=== PATIENT | female | born 1980 | race Caucasian/White ===

== ENCOUNTER 2018-08-21 16:55 | Emergency (ER) | payer MEDICAID, SELFPAY ==
[2018-08-21 17:00] VITALS: BP 156/95; PULSE 72; RESP 16; TEMP 36.7; O2SAT 94
--- NOTE | 2018-08-21 17:04 | W.ED.GENAD ---
Discharge Plan Disposition Patient Disposition: HOME Condition: Stable Discharge Details Chief Complaint: DentalOral Clinical Impression: Pain, dental Primary Care Provider: Emma Chatterjee ED Provider: Yazan Hidalgo Home Meds and New Rx's Prescriptions: New amoxicillin 500 mg tablet 500 mg PO BID Qty: 20 RF: 0 Continued epinephrine [EpiPen 2-Rey] 0.3 MG/0.3 ML auto-injector 0.3 mg IM ONCE RF: 0 Women's Daily Multivitamin 1 EACH tablet 1 ea PO DAILY RF: 0 acetaminophen [Tylenol] 325 MG tablet 650 mg PO Q4H PRN PRNRF: 0 ibuprofen 600 MG tablet 600 mg PO Q6H PRN PRNRF: 0 lorazepam 1 mg Tablet 1 tab PO PRN PRNRF: 0 lamotrigine [Lamictal] 100 mg Tablet 125 mg PO DAILY RF: 0 Discharge Instructions Instructions: Toothache (ED) Additional Instructions: you are being treated for a dental infection. you should follow up with your dentist within 2 weeks for pain take 1000mg tylenol and 600mg ibuprofen every 6 hours for pain as needed if you have difficulty breathing or difficulty swallowing liquids return to the emergency department Medical Decision Making 38 yo female comes in with severeal days of left upper dental pain. She denies fevers or difficulty swallowing. HAs severe dental decay of left upper posterior molars, midline uvula, no submandibular swelling, no restricted neck movements. 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 Will tx as dental infection and return precautions given Differential Diagnosis caries, infection HPI General Mode of arrival: ambulatory. Date/Time Provider Initiated Documentation: 08/21/18 16:55. Limitations to Documentation: no limitations. Information obtained by: patient. History of Present Illness 38 year old F presents to the emergency department with the chief complaint of left upper tooth pain , described as moderate, with intensity rated at 8. Quality is described as stabbing and aching, and is localized to the mouth. Patient started experiencing this day(s) (2) and it has been constant. No relieving factors improve symptom(s), No exacerbating factors reported . Patient notes no other symptoms.. Patient did receive the following treatments prior to arrival, NSAID Related Data Home Medications Medication Instructions Recorded Confirmed Women's Daily Multivitamin 1 ea PO DAILY tab-cap 03/15/16 08/21/18 epinephrine [EpiPen 2-Rey] 0.3 mg IM ONCE kit 03/15/16 08/21/18 acetaminophen [Tylenol] 650 mg PO Q4H PRN PRN tab 03/17/16 08/21/18 ibuprofen 600 mg PO Q6H PRN PRN tab 03/17/16 08/21/18 amoxicillin 500 mg PO BID #20 tab 08/21/18 lamotrigine [Lamictal] 125 mg PO DAILY 08/21/18 08/21/18 lorazepam 1 tab PO PRN PRN 08/21/18 08/21/18 Previous Rx's Medication Instructions Recorded acetaminophen [Tylenol] 650 mg PO Q4H PRN PRN tab 03/17/16 ibuprofen 600 mg PO Q6H PRN PRN tab 03/17/16 amoxicillin 500 mg PO BID #20 tab 08/21/18 Allergies Allergy/AdvReac Type Severity Reaction Status Date / Time latex Allergy Unknown BREAKS OUT Unverified 08/21/18 17:04 IN WATER BLISTERS venom-honey bee Allergy Unknown swelling Unverified 08/21/18 17:04 [bee venom (honey bee)] codeine AdvReac Unknown COULD Unverified 08/21/18 17:04 NOT SLEEP FOR 3 DAYS General Stated Complaint: DentalOral ADWOA: 4 Review of Systems Review of Systems All systems reviewed & are unremarkable except as noted in HPI and below Constitutional Denies chills, Denies fever(s) and Denies weakness ENT Denies change in voice Cardiovascular Denies chest pain and Denies dyspnea Respiratory Denies dyspnea Gastrointestinal Denies abdominal pain, Denies nausea and Denies vomiting Musculoskeletal Denies joint swelling Neurologic Denies weakness Psychiatric Denies depression [facility] Medical History Pelvic pain in female Family History Mother Alcohol abuse Sister Asthma Other Hypothyroidism Social History Smoking/Tobacco Use Status: Current every day Exam Const General: no acute distress Orientation: alert HENDE Head: normal to inspection Ears: external ears normal General nose exam: external nose normal Mouth: moist mucous membranes Eyes General: appearance normal, both eyes and all related structures Neck Neck: normal visual inspection Resp Effort & Inspection: normal respiratory effort and able to speak in complete sentences Cardio Rate: regular rate Skin General skin exam: no rashes or lesions noted Neuro General: alert and oriented x3 Extrem General: normal to inspection Psych Mental Status: mental status grossly normal Course Vital Signs Temperature 36.7 C 08/21/18 17:00 Pulse 72 08/21/18 17:00 Respiratory Rate 16 08/21/18 17:00 Blood Pressure 156/95 H 08/21/18 17:00 Pulse Oximetry 94 L 08/21/18 17:00 Temperature 36.7 C 08/21/18 17:00 Temperature Source Skin 08/21/18 17:00 Pulse 72 08/21/18 17:00 Respiratory Rate 16 08/21/18 17:00 Respiratory Effort Non-Labored 08/21/18 17:03 Blood Pressure 156/95 H 08/21/18 17:00 Pulse Oximetry 94 L 08/21/18 17:00 Pain Level 10 08/21/18 17:00
--- NOTE | 2018-08-21 17:13 | ED.GENADUL_ITS ---
Discharge Plan Disposition Patient Disposition: HOME Condition: Stable Discharge Details Chief Complaint: DentalOral Clinical Impression: Pain, dental Primary Care Provider: Emma Chatterjee ED Provider: Yazan Hidalgo Home Meds and New Rx's Prescriptions: New amoxicillin 500 mg tablet 500 mg PO BID Qty: 20 RF: 0 Continued epinephrine [EpiPen 2-Rey] 0.3 MG/0.3 ML auto-injector 0.3 mg IM ONCE RF: 0 Women's Daily Multivitamin 1 EACH tablet 1 ea PO DAILY RF: 0 acetaminophen [Tylenol] 325 MG tablet 650 mg PO Q4H PRN PRNRF: 0 ibuprofen 600 MG tablet 600 mg PO Q6H PRN PRNRF: 0 lorazepam 1 mg Tablet 1 tab PO PRN PRNRF: 0 lamotrigine [Lamictal] 100 mg Tablet 125 mg PO DAILY RF: 0 Discharge Instructions Instructions: Toothache (ED) Additional Instructions: you are being treated for a dental infection. you should follow up with your dentist within 2 weeks for pain take 1000mg tylenol and 600mg ibuprofen every 6 hours for pain as needed if you have difficulty breathing or difficulty swallowing liquids return to the emergency department Medical Decision Making 38 yo female comes in with severeal days of left upper dental pain. She denies fevers or difficulty swallowing. HAs severe dental decay of left upper posterior molars, midline uvula, no submandibular swelling, no restricted neck movements. 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 Will tx as dental infection and return precautions given Differential Diagnosis caries, infection HPI General Mode of arrival: ambulatory . Date/Time Provider Initiated Documentation: 08/21/18 16:55 . Limitations to Documentation: no limitations . Information obtained by: patient . History of Present Illness 38 year old F presents to the emergency department with the chief complaint of left upper tooth pain , described as moderate, with intensity rated at 8. Quality is described as stabbing and aching, and is localized to the mouth. Patient started experiencing this day(s) (2) and it has been constant. No relieving factors improve symptom(s), No exacerbating factors reported . Patient notes no other symptoms.. Patient did receive the following treatments prior to arrival, NSAID Related Data Home Medications Medication Instructions Recorded Confirmed Women's Daily Multivitamin 1 ea PO DAILY tab-cap 03/15/16 08/21/18 epinephrine [EpiPen 2-Rey] 0.3 mg IM ONCE kit 03/15/16 08/21/18 acetaminophen [Tylenol] 650 mg PO Q4H PRN PRN tab 03/17/16 08/21/18 ibuprofen 600 mg PO Q6H PRN PRN tab 03/17/16 08/21/18 amoxicillin 500 mg PO BID #20 tab 08/21/18 lamotrigine [Lamictal] 125 mg PO DAILY 08/21/18 08/21/18 lorazepam 1 tab PO PRN PRN 08/21/18 08/21/18 Previous Rx's Medication Instructions Recorded acetaminophen [Tylenol] 650 mg PO Q4H PRN PRN tab 03/17/16 ibuprofen 600 mg PO Q6H PRN PRN tab 03/17/16 amoxicillin 500 mg PO BID #20 tab 08/21/18 Allergies Allergy/AdvReac Type Severity Reaction Status Date / Time latex Allergy Unknown BREAKS OUT Unverified 08/21/18 17:04 IN WATER BLISTERS venom-honey bee Allergy Unknown swelling Unverified 08/21/18 17:04 [bee venom (honey bee)] codeine AdvReac Unknown COULD Unverified 08/21/18 17:04 NOT SLEEP FOR 3 DAYS General Stated Complaint: DentalOral ADWOA: 4 Review of Systems Review of Systems All systems reviewed & are unremarkable except as noted in HPI and below Constitutional Denies chills, Denies fever(s) and Denies weakness ENT Denies change in voice Cardiovascular Denies chest pain and Denies dyspnea Respiratory Denies dyspnea Gastrointestinal Denies abdominal pain, Denies nausea and Denies vomiting Musculoskeletal Denies joint swelling Neurologic Denies weakness Psychiatric Denies depression [facility] Medical History Pelvic pain in female Family History Mother Alcohol abuse Sister Asthma Other Hypothyroidism Social History Smoking/Tobacco Use Status: Current every day Exam Const General: no acute distress Orientation: alert HENWV Head: normal to inspection Ears: external ears normal General nose exam: external nose normal Mouth: moist mucous membranes Eyes General: appearance normal, both eyes and all related structures Neck Neck: normal visual inspection Resp Effort & Inspection: normal respiratory effort and able to speak in complete sentences Cardio Rate: regular rate Skin General skin exam: no rashes or lesions noted Neuro General: alert and oriented x3 Extrem General: normal to inspection Psych Mental Status: mental status grossly normal Course Vital Signs Temperature 36.7 C 08/21/18 17:00 Pulse 72 08/21/18 17:00 Respiratory Rate 16 08/21/18 17:00 Blood Pressure 156/95 H 08/21/18 17:00 Pulse Oximetry 94 L 08/21/18 17:00 Temperature 36.7 C 08/21/18 17:00 Temperature Source Skin 08/21/18 17:00 Pulse 72 08/21/18 17:00 Respiratory Rate 16 08/21/18 17:00 Respiratory Effort Non-Labored 08/21/18 17:03 Blood Pressure 156/95 H 08/21/18 17:00 Pulse Oximetry 94 L 08/21/18 17:00 Pain Level 10 08/21/18 17:00
[2018-08-21] MEDS: oxyCODONE 5 MG TAB PO (17:16)
[2018-08-21] MEDS: Amoxicillin 500 MG CAP PO (17:17)
== END 2018-08-21 17:22 | disposition home or self-care (01) ==
LOC: ER 17:19
PROVIDERS: Emergency Provider Emergency Medicine
DX: K08.89 Other specified disorders of teeth and supporting structures (principal); K02.9 Dental caries, unspecified; F17.210 Nicotine dependence, cigarettes, uncomplicated
CPT/HCPCS: 99283

== ENCOUNTER 2018-08-31 22:48 | Emergency (ER) | payer MEDICAID, SELFPAY ==
[2018-08-31 22:50] VITALS: BP 153/84; PULSE 90; RESP 16
--- NOTE | 2018-08-31 22:57 | NUR.NOTE ---
patient has white tongue patches Nursing Note:
--- NOTE | 2018-08-31 22:57 | W.ED.GENAD ---
Discharge Plan Disposition Patient Disposition: HOME Condition: Stable Discharge Details Chief Complaint: GenMedical Clinical Impression: Oral thrush Primary Care Provider: None,None ED Provider: Yazan Hidalgo Home Meds and New Rx's Prescriptions: New nystatin 100,000 unit/mL suspension 400,000 unit BC QID 10 Days Qty: 160 RF: 0 Continued epinephrine [EpiPen 2-Rey] 0.3 MG/0.3 ML auto-injector 0.3 mg IM ONCE RF: 0 Women's Daily Multivitamin 1 EACH tablet 1 ea PO DAILY RF: 0 acetaminophen [Tylenol] 325 MG tablet 650 mg PO Q4H PRN PRNRF: 0 ibuprofen 600 MG tablet 600 mg PO Q6H PRN PRNRF: 0 lorazepam 1 mg Tablet 1 tab PO PRN PRNRF: 0 lamotrigine [Lamictal] 100 mg Tablet 125 mg PO DAILY RF: 0 amoxicillin 500 mg tablet 500 mg PO BID Qty: 20 RF: 0 Discharge Instructions Instructions: Oral Candidiasis (ED) Medical Decision Making 38 yo female comes in with white substance on tongue and cotton mouth starting tonight. Hsa one more day of abx for a dental infection and has no pain now, speaking in full sentences with no stridor or drooling or submandibular swelling. Has white curd like plaques and leaves erythematous base when removed. Suspect thrush due to the abx, no other systemic findings to suggest hiv so do not feel workup for this indicated. Will prescribe nystatin and d/c home Differential Diagnosis thrush, measels, dermatitis HPI General Mode of arrival: ambulatory. Date/Time Provider Initiated Documentation: 08/31/18 22:49. Limitations to Documentation: no limitations. Information obtained by: patient. History of Present Illness 38 year old F presents to the emergency department with the chief complaint of tongue white, described as mild, and is localized to the mouth. Patient reports no radiation. Patient started experiencing this hour(s) (3) and it has been constant. No relieving factors improve symptom(s), No exacerbating factors reported . Patient notes no other symptoms.. Patient did receive the following treatments prior to arrival, none Related Data Home Medications Medication Instructions Recorded Confirmed Women's Daily Multivitamin 1 ea PO DAILY tab-cap 03/15/16 08/31/18 epinephrine [EpiPen 2-Rey] 0.3 mg IM ONCE kit 03/15/16 08/31/18 acetaminophen [Tylenol] 650 mg PO Q4H PRN PRN tab 03/17/16 08/31/18 ibuprofen 600 mg PO Q6H PRN PRN tab 03/17/16 08/31/18 amoxicillin 500 mg PO BID #20 tab 08/21/18 08/31/18 lamotrigine [Lamictal] 125 mg PO DAILY 08/21/18 08/31/18 lorazepam 1 tab PO PRN PRN 08/21/18 08/31/18 nystatin 400,000 unit BC QID 10 Days #160 ml 08/31/18 Previous Rx's Medication Instructions Recorded acetaminophen [Tylenol] 650 mg PO Q4H PRN PRN tab 03/17/16 ibuprofen 600 mg PO Q6H PRN PRN tab 03/17/16 amoxicillin 500 mg PO BID #20 tab 08/21/18 nystatin 400,000 unit BC QID 10 Days #160 ml 08/31/18 Allergies Allergy/AdvReac Type Severity Reaction Status Date / Time latex Allergy Unknown BREAKS OUT Unverified 08/31/18 22:56 IN WATER BLISTERS venom-honey bee Allergy Unknown swelling Unverified 08/31/18 22:56 [bee venom (honey bee)] codeine AdvReac Unknown COULD Unverified 08/31/18 22:56 NOT SLEEP FOR 3 DAYS General Stated Complaint: GenMedical ADWOA: 5 Review of Systems Review of Systems All systems reviewed & are unremarkable except as noted in HPI and below Constitutional Denies chills, Denies fever(s) and Denies weakness ENT Denies change in voice Cardiovascular Denies chest pain and Denies dyspnea Respiratory Denies dyspnea Gastrointestinal Denies abdominal pain, Denies nausea and Denies vomiting Neurologic Denies weakness Psychiatric Denies depression [facility] Social History Smoking/Tobacco Use Status: Current every day Exam Const General: no acute distress Orientation: alert HENMT Head: normal to inspection Ears: external ears normal General nose exam: external nose normal Mouth: moist mucous membranes Eyes General: appearance normal, both eyes and all related structures Neck Neck: normal visual inspection Resp Effort & Inspection: normal respiratory effort and able to speak in complete sentences Cardio Rate: regular rate Skin General skin exam: no rashes or lesions noted Neuro General: alert and oriented x3 Extrem General: normal to inspection Psych Mental Status: mental status grossly normal Course Vital Signs Pulse 90 08/31/18 22:50 Respiratory Rate 16 08/31/18 22:50 Blood Pressure 153/84 H 08/31/18 22:50 Temperature Source Tympanic 08/31/18 22:50 Pulse 90 08/31/18 22:50 Respiratory Rate 16 08/31/18 22:50 Respiratory Effort 08/31/18 22:55 Respiratory Depth Normal 08/31/18 22:55 Respiratory Pattern Normal 08/31/18 22:55 Blood Pressure 153/84 H 08/31/18 22:50
--- NOTE | 2018-08-31 23:01 | ED.GENADUL_ITS ---
Discharge Plan Disposition Patient Disposition: HOME Condition: Stable Discharge Details Chief Complaint: GenMedical Clinical Impression: Oral thrush Primary Care Provider: None,None ED Provider: Yazan Hidalgo Home Meds and New Rx's Prescriptions: New nystatin 100,000 unit/mL suspension 400,000 unit BC QID 10 Days Qty: 160 RF: 0 Continued epinephrine [EpiPen 2-Rey] 0.3 MG/0.3 ML auto-injector 0.3 mg IM ONCE RF: 0 Women's Daily Multivitamin 1 EACH tablet 1 ea PO DAILY RF: 0 acetaminophen [Tylenol] 325 MG tablet 650 mg PO Q4H PRN PRNRF: 0 ibuprofen 600 MG tablet 600 mg PO Q6H PRN PRNRF: 0 lorazepam 1 mg Tablet 1 tab PO PRN PRNRF: 0 lamotrigine [Lamictal] 100 mg Tablet 125 mg PO DAILY RF: 0 amoxicillin 500 mg tablet 500 mg PO BID Qty: 20 RF: 0 Discharge Instructions Instructions: Oral Candidiasis (ED) Medical Decision Making 38 yo female comes in with white substance on tongue and cotton mouth starting tonight. Hsa one more day of abx for a dental infection and has no pain now, speaking in full sentences with no stridor or drooling or submandibular swelling. Has white curd like plaques and leaves erythematous base when removed. Suspect thrush due to the abx, no other systemic findings to suggest hiv so do not feel workup for this indicated. Will prescribe nystatin and d/c home Differential Diagnosis thrush, measels, dermatitis HPI General Mode of arrival: ambulatory . Date/Time Provider Initiated Documentation: 08/31/18 22:49 . Limitations to Documentation: no limitations . Information obtained by: patient . History of Present Illness 38 year old F presents to the emergency department with the chief complaint of tongue white, described as mild, and is localized to the mouth. Patient reports no radiation. Patient started experiencing this hour(s) (3) and it has been constant. No relieving factors improve symptom(s), No exacerbating factors reported . Patient notes no other symptoms.. Patient did receive the following treatments prior to arrival, none Related Data Home Medications Medication Instructions Recorded Confirmed Women's Daily Multivitamin 1 ea PO DAILY tab-cap 03/15/16 08/31/18 epinephrine [EpiPen 2-Rey] 0.3 mg IM ONCE kit 03/15/16 08/31/18 acetaminophen [Tylenol] 650 mg PO Q4H PRN PRN tab 03/17/16 08/31/18 ibuprofen 600 mg PO Q6H PRN PRN tab 03/17/16 08/31/18 amoxicillin 500 mg PO BID #20 tab 08/21/18 08/31/18 lamotrigine [Lamictal] 125 mg PO DAILY 08/21/18 08/31/18 lorazepam 1 tab PO PRN PRN 08/21/18 08/31/18 nystatin 400,000 unit BC QID 10 Days #160 ml 08/31/18 Previous Rx's Medication Instructions Recorded acetaminophen [Tylenol] 650 mg PO Q4H PRN PRN tab 03/17/16 ibuprofen 600 mg PO Q6H PRN PRN tab 03/17/16 amoxicillin 500 mg PO BID #20 tab 08/21/18 nystatin 400,000 unit BC QID 10 Days #160 ml 08/31/18 Allergies Allergy/AdvReac Type Severity Reaction Status Date / Time latex Allergy Unknown BREAKS OUT Unverified 08/31/18 22:56 IN WATER BLISTERS venom-honey bee Allergy Unknown swelling Unverified 08/31/18 22:56 [bee venom (honey bee)] codeine AdvReac Unknown COULD Unverified 08/31/18 22:56 NOT SLEEP FOR 3 DAYS General Stated Complaint: GenMedical ADWOA: 5 Review of Systems Review of Systems All systems reviewed & are unremarkable except as noted in HPI and below Constitutional Denies chills, Denies fever(s) and Denies weakness ENT Denies change in voice Cardiovascular Denies chest pain and Denies dyspnea Respiratory Denies dyspnea Gastrointestinal Denies abdominal pain, Denies nausea and Denies vomiting Neurologic Denies weakness Psychiatric Denies depression [facility] Social History Smoking/Tobacco Use Status: Current every day Exam Const General: no acute distress Orientation: alert HENMT Head: normal to inspection Ears: external ears normal General nose exam: external nose normal Mouth: moist mucous membranes Eyes General: appearance normal, both eyes and all related structures Neck Neck: normal visual inspection Resp Effort & Inspection: normal respiratory effort and able to speak in complete sentences Cardio Rate: regular rate Skin General skin exam: no rashes or lesions noted Neuro General: alert and oriented x3 Extrem General: normal to inspection Psych Mental Status: mental status grossly normal Course Vital Signs Pulse 90 08/31/18 22:50 Respiratory Rate 16 08/31/18 22:50 Blood Pressure 153/84 H 08/31/18 22:50 Temperature Source Tympanic 08/31/18 22:50 Pulse 90 08/31/18 22:50 Respiratory Rate 16 08/31/18 22:50 Respiratory Effort 08/31/18 22:55 Respiratory Depth Normal 08/31/18 22:55 Respiratory Pattern Normal 08/31/18 22:55 Blood Pressure 153/84 H 08/31/18 22:50
== END 2018-08-31 23:05 | disposition home or self-care (01) ==
PROVIDERS: Emergency Provider Emergency Medicine
DX: B37.0 Candidal stomatitis (principal)
CPT/HCPCS: 99283

== ENCOUNTER 2018-10-11 17:44 | Emergency (ER) | payer MEDICAID, SELFPAY ==
[2018-10-11 18:00] VITALS: BP 139/56; PULSE 73; RESP 16; TEMP 37; O2SAT 95
--- NOTE | 2018-10-11 18:07 | W.ED.GENAD ---
Discharge Plan Disposition Patient Disposition: HOME Condition: Stable Discharge Details Chief Complaint: RashLesion Clinical Impression: Pharyngitis, Enlarged lymph node Primary Care Provider: None,None ED Provider: Yazan Hidalgo Home Meds and New Rx's Prescriptions: New clindamycin HCl 150 mg capsule 450 mg PO TID 7 Days Qty: 63 RF: 0 Continued epinephrine [EpiPen 2-Rey] 0.3 MG/0.3 ML auto-injector 0.3 mg IM ONCE RF: 0 Women's Daily Multivitamin 1 EACH tablet 1 ea PO DAILY RF: 0 acetaminophen [Tylenol] 325 MG tablet 650 mg PO Q4H PRN PRNRF: 0 ibuprofen 600 MG tablet 600 mg PO Q6H PRN PRNRF: 0 lorazepam 1 mg Tablet 1 tab PO PRN PRNRF: 0 lamotrigine [Lamictal] 100 mg Tablet 150 mg PO DAILY RF: 0 Discharge Instructions Instructions: Pharyngitis (ED) Additional Instructions: The nodule/lump you feel is likely an enlarged lymph node follow up as scheduled with your primary care provider especially if the lump or symptoms are not improving if you have difficulty breathing or inability to swallow liquids return to the emergency department Medical Decision Making 38 yo female comes in with sore throat and tender lump on left anterior neck since yesterday. no fevers, chills, dyspnea, on exam is swallowing well without stridor or droling. She does have posterior pharynx erythema with midline uvula, no pain over hyoid or restricted neck movements on exam, no findings to suggest rpa, guest experience captain, epiglotitis. Given no other systemic symptoms doubt viral pharyngitis and will start abx to cover for bacterial pharyngitis. She has a 1x1cm mobile mass on the left anterior neck that seems most consistnent with a lymph node, no redness or fluctuance to suggest abscess. Advised f/u with pcp and return precautions given Differential Diagnosis pharyngitis, lymphadenopathy, rpa, guest experience captain HPI General Mode of arrival: ambulatory. Date/Time Provider Initiated Documentation: 10/11/18 17:57. Limitations to Documentation: no limitations. Information obtained by: patient. History of Present Illness 38 year old F presents to the emergency department with the chief complaint of sore throat, described as moderate, with intensity rated at 4. Quality is described as aching, Patient started experiencing this day(s) (1) and it has been constant. No relieving factors improve symptom(s), No exacerbating factors reported . Patient did receive the following treatments prior to arrival, none Related Data Home Medications Medication Instructions Recorded Confirmed Women's Daily Multivitamin 1 ea PO DAILY tab-cap 03/15/16 10/11/18 epinephrine [EpiPen 2-Rey] 0.3 mg IM ONCE kit 03/15/16 10/11/18 acetaminophen [Tylenol] 650 mg PO Q4H PRN PRN tab 03/17/16 10/11/18 ibuprofen 600 mg PO Q6H PRN PRN tab 03/17/16 10/11/18 lamotrigine [Lamictal] 150 mg PO DAILY 08/21/18 10/11/18 lorazepam 1 tab PO PRN PRN 08/21/18 10/11/18 clindamycin HCl 450 mg PO TID 7 Days #63 cap 10/11/18 Previous Rx's Medication Instructions Recorded acetaminophen [Tylenol] 650 mg PO Q4H PRN PRN tab 03/17/16 ibuprofen 600 mg PO Q6H PRN PRN tab 03/17/16 clindamycin HCl 450 mg PO TID 7 Days #63 cap 10/11/18 Allergies Allergy/AdvReac Type Severity Reaction Status Date / Time latex Allergy Unknown BREAKS OUT Unverified 10/11/18 18:02 IN WATER BLISTERS venom-honey bee Allergy Unknown swelling Unverified 10/11/18 18:02 [bee venom (honey bee)] codeine AdvReac Unknown COULD Unverified 10/11/18 18:02 NOT SLEEP FOR 3 DAYS General Stated Complaint: RashLesion ADWOA: 4 Review of Systems Review of Systems All systems reviewed & are unremarkable except as noted in HPI and below Constitutional Denies chills, Denies fever(s) and Denies weakness ENT Denies change in voice Cardiovascular Denies chest pain and Denies dyspnea Respiratory Denies cough and Denies dyspnea Gastrointestinal Denies abdominal pain, Denies nausea and Denies vomiting Genitourinary Denies dysuria Musculoskeletal Denies joint swelling Integumentary/Breasts Denies rash Neurologic Denies weakness PFSH Social History Smoking and Tabacco status: Current every day Exam Const General: no acute distress Orientation: alert HENMT Head: normal to inspection Ears: external ears normal General nose exam: external nose normal Mouth: moist mucous membranes Eyes General: appearance normal, both eyes and all related structures Neck Neck: normal visual inspection Resp Effort & Inspection: normal respiratory effort and able to speak in complete sentences Cardio Rate: regular rate Skin General skin exam: no rashes or lesions noted Neuro General: alert and oriented x3 Extrem General: normal to inspection Psych Mental Status: mental status grossly normal Course Vital Signs Temperature 37.0 C 10/11/18 18:00 Pulse 73 10/11/18 18:00 Respiratory Rate 16 10/11/18 18:00 Blood Pressure 139/56 L 10/11/18 18:00 Pulse Oximetry 95 10/11/18 18:00 Temperature 37.0 C 10/11/18 18:00 Temperature Source Skin 10/11/18 18:00 Pulse 73 10/11/18 18:00 Respiratory Rate 16 10/11/18 18:00 Respiratory Effort Non-Labored 10/11/18 18:00 Blood Pressure 139/56 L 10/11/18 18:00 Blood Pressure Position Sitting 10/11/18 18:00 Pulse Oximetry 95 10/11/18 18:00 Oxygen Delivery Method Room Air 10/11/18 18:00 Oxygen Flow Rate 0 10/11/18 18:00 Pain Level 7 10/11/18 18:00
--- NOTE | 2018-10-11 18:10 | ED.GENADUL_ITS ---
Discharge Plan Disposition Patient Disposition: HOME Condition: Stable Discharge Details Chief Complaint: RashLesion Clinical Impression: Pharyngitis, Enlarged lymph node Primary Care Provider: None,None ED Provider: Yazan Hidalgo Home Meds and New Rx's Prescriptions: New clindamycin HCl 150 mg capsule 450 mg PO TID 7 Days Qty: 63 RF: 0 Continued epinephrine [EpiPen 2-Rey] 0.3 MG/0.3 ML auto-injector 0.3 mg IM ONCE RF: 0 Women's Daily Multivitamin 1 EACH tablet 1 ea PO DAILY RF: 0 acetaminophen [Tylenol] 325 MG tablet 650 mg PO Q4H PRN PRNRF: 0 ibuprofen 600 MG tablet 600 mg PO Q6H PRN PRNRF: 0 lorazepam 1 mg Tablet 1 tab PO PRN PRNRF: 0 lamotrigine [Lamictal] 100 mg Tablet 150 mg PO DAILY RF: 0 Discharge Instructions Instructions: Pharyngitis (ED) Additional Instructions: The nodule/lump you feel is likely an enlarged lymph node follow up as scheduled with your primary care provider especially if the lump or symptoms are not improving if you have difficulty breathing or inability to swallow liquids return to the emergency department Medical Decision Making 38 yo female comes in with sore throat and tender lump on left anterior neck since yesterday. no fevers, chills, dyspnea, on exam is swallowing well without stridor or droling. She does have posterior pharynx erythema with midline uvula, no pain over hyoid or restricted neck movements on exam, no findings to suggest rpa, captain waiter/waitress, epiglotitis. Given no other systemic symptoms doubt viral pharyngitis and will start abx to cover for bacterial pharyngitis. She has a 1x1cm mobile mass on the left anterior neck that seems most consistnent with a lymph node, no redness or fluctuance to suggest abscess. Advised f/u with pcp and return precautions given Differential Diagnosis pharyngitis, lymphadenopathy, rpa, captain waiter/waitress HPI General Mode of arrival: ambulatory . Date/Time Provider Initiated Documentation: 10/11/18 17:57 . Limitations to Documentation: no limitations . Information obtained by: patient . History of Present Illness 38 year old F presents to the emergency department with the chief complaint of sore throat, described as moderate, with intensity rated at 4. Quality is described as aching, Patient started experiencing this day(s) (1) and it has been constant. No relieving factors improve symptom(s), No exacerbating factors reported . Patient did receive the following treatments prior to arrival, none Related Data Home Medications Medication Instructions Recorded Confirmed Women's Daily Multivitamin 1 ea PO DAILY tab-cap 03/15/16 10/11/18 epinephrine [EpiPen 2-Rey] 0.3 mg IM ONCE kit 03/15/16 10/11/18 acetaminophen [Tylenol] 650 mg PO Q4H PRN PRN tab 03/17/16 10/11/18 ibuprofen 600 mg PO Q6H PRN PRN tab 03/17/16 10/11/18 lamotrigine [Lamictal] 150 mg PO DAILY 08/21/18 10/11/18 lorazepam 1 tab PO PRN PRN 08/21/18 10/11/18 clindamycin HCl 450 mg PO TID 7 Days #63 cap 10/11/18 Previous Rx's Medication Instructions Recorded acetaminophen [Tylenol] 650 mg PO Q4H PRN PRN tab 03/17/16 ibuprofen 600 mg PO Q6H PRN PRN tab 03/17/16 clindamycin HCl 450 mg PO TID 7 Days #63 cap 10/11/18 Allergies Allergy/AdvReac Type Severity Reaction Status Date / Time latex Allergy Unknown BREAKS OUT Unverified 10/11/18 18:02 IN WATER BLISTERS venom-honey bee Allergy Unknown swelling Unverified 10/11/18 18:02 [bee venom (honey bee)] codeine AdvReac Unknown COULD Unverified 10/11/18 18:02 NOT SLEEP FOR 3 DAYS General Stated Complaint: RashLesion ADWOA: 4 Review of Systems Review of Systems All systems reviewed & are unremarkable except as noted in HPI and below Constitutional Denies chills, Denies fever(s) and Denies weakness ENT Denies change in voice Cardiovascular Denies chest pain and Denies dyspnea Respiratory Denies cough and Denies dyspnea Gastrointestinal Denies abdominal pain, Denies nausea and Denies vomiting Genitourinary Denies dysuria Musculoskeletal Denies joint swelling Integumentary/Breasts Denies rash Neurologic Denies weakness PFSH Social History Smoking and Tabacco status: Current every day Exam Const General: no acute distress Orientation: alert HENMT Head: normal to inspection Ears: external ears normal General nose exam: external nose normal Mouth: moist mucous membranes Eyes General: appearance normal, both eyes and all related structures Neck Neck: normal visual inspection Resp Effort & Inspection: normal respiratory effort and able to speak in complete sentences Cardio Rate: regular rate Skin General skin exam: no rashes or lesions noted Neuro General: alert and oriented x3 Extrem General: normal to inspection Psych Mental Status: mental status grossly normal Course Vital Signs Temperature 37.0 C 10/11/18 18:00 Pulse 73 10/11/18 18:00 Respiratory Rate 16 10/11/18 18:00 Blood Pressure 139/56 L 10/11/18 18:00 Pulse Oximetry 95 10/11/18 18:00 Temperature 37.0 C 10/11/18 18:00 Temperature Source Skin 10/11/18 18:00 Pulse 73 10/11/18 18:00 Respiratory Rate 16 10/11/18 18:00 Respiratory Effort Non-Labored 10/11/18 18:00 Blood Pressure 139/56 L 10/11/18 18:00 Blood Pressure Position Sitting 10/11/18 18:00 Pulse Oximetry 95 10/11/18 18:00 Oxygen Delivery Method Room Air 10/11/18 18:00 Oxygen Flow Rate 0 10/11/18 18:00 Pain Level 7 10/11/18 18:00
== END 2018-10-11 18:15 | disposition home or self-care (01) ==
LOC: ER 18:28
PROVIDERS: Emergency Provider Emergency Medicine
DX: J02.9 Acute pharyngitis, unspecified (principal); R59.0 Localized enlarged lymph nodes
CPT/HCPCS: 99283

== ENCOUNTER 2024-02-08 20:09 | Emergency (ER) | payer MEDICAID, SELFPAY ==
[2024-02-08 20:17] VITALS: BP 148/88; PULSE 79; RESP 15; TEMP 37.1; O2SAT 98
[2024-02-08 20:19] VITALS: BP 148/88; PULSE 79; RESP 15; TEMP 37.1; O2SAT 98
--- NOTE | 2024-02-08 20:23 | ED.GENADUL_ITS ---
Discharge Plan Disposition Patient Disposition: Home Condition: Stable Discharge Details Clinical Impression: Dental infection Primary Care Provider: None,None ED Provider: Nathanael River Home Meds and New Rx's Prescriptions: New amoxicillin-pot clavulanate 875-125 mg tablet 1 tab PO BID 10 Days Qty: 20 0RF Continued epinephrine [EpiPen 2-Rey] 0.3 MG/0.3 ML auto-injector 0.3 mg IM ONCE Hold Instructions: Prescription Finished Patient Comments: I have never used 06/07/16 Women's Daily Multivitamin 1 EACH tablet 1 ea PO DAILY acetaminophen [Tylenol] 325 MG tablet 650 mg PO Q4H PRN PRN0RF ibuprofen 600 MG tablet 600 mg PO Q6H PRN PRN0RF lorazepam 1 mg Tablet 1 tab PO PRN PRN Hold Instructions: Pt Stopped/Never Started lamotrigine [Lamictal] 100 mg Tablet 150 mg PO DAILY Hold Instructions: Pt Stopped/Never Started Discharge Instructions Instructions: Dental Pain ED Additional Instructions: You were seen in the emergency department for your dental infection, there is no visible abscess. I think we can treat this with antibiotics only with good chances of relief. Please take the prescribed Augmentin as directed it was sent to [facility] in [place]. Use Orajel as you have been, please use therapeutic dosing of Tylenol (acetamenophen) & Advil (ibuprofen) in an alternating fashion as follows: Take 1000mg of Tylenol every 6 hours without missing doses- that is 4 times per day. [place] in between the Tylenol dosings, take 400-600mg of Advil also on a 6 hour schedule, that is also 4 times per day. The daily maximum dosing of Tylenol is 4000mg, and the daily maximum dosing of Advil is 2400mg. This is safe to do for weeks. Please note that some common cold medications & prescription pain medications may contain acetamenophen and you need to read OTC drug labels and factor that in to maximum daily dosings. Swish and spit with warm salt water 3 times per day, [employer] clove homeopathic remedy for dental pain. Please return to the emergency department for severe increase in facial swelling with redness, inability to open or close your jaw, muffled vocal changes, excessive drooling. Referrals: [facility] [Provider Group] Discharge Data Discharge Date/Time-TO BE ENTERED AT DEPARTURE: 02/08/24 20:46 HPI General Date/Time Provider Initiated Documentation: 02/08/24 20:23 . HPI Narrative: 43 year-old female presents to ED today by POV/ambulating with a chief complaint of L cheek swelling and dental infection with onset noticed for the past few days- but the swelling to L cheek increased this morning. Quality described as throbbing pain, upper L canine area, no radiation to muffled vocal changes, neck swelling, hernandez facial redness, trismus, dysphagia, inability to tolerate PO intake. Severity is described as severe. Palliating factors include Tylenol & ibuprofen and Orajel with mild relief. Provoking factors include nothing specific. Events leading up to the incident/Associated Symptoms: Patient has diffuse dental caries. Patient not anticoagulated. Related Data Home Medications Medication Instructions Recorded Confirmed epinephrine 0.3 mg/0.3 mL 0.3 mg IM ONCE 03/15/16 02/08/24 injection, auto-injector (EpiPen 2-Rey) [id number] 18 1 ea PO DAILY 03/15/16 02/08/24 mg-0.4 mg tablet (Women's Daily Multivitamin) acetaminophen 325 mg tablet 650 mg (2 x 325 mg) PO Q4H PRN PRN 03/17/16 02/08/24 (Tylenol) ibuprofen 600 mg tablet 600 mg PO Q6H PRN PRN 03/17/16 02/08/24 lamotrigine 100 mg tablet 150 mg PO DAILY 08/21/18 02/08/24 (Lamictal) lorazepam 1 mg tablet 1 tab PO PRN PRN 08/21/18 02/08/24 amoxicillin 875 mg-potassium 1 tab PO BID 10 days #20 tabs 02/08/24 clavulanate 125 mg tablet Previous Rx's Medication Instructions Recorded acetaminophen 325 mg tablet 650 mg (2 x 325 mg) PO Q4H PRN PRN 03/17/16 (Tylenol) ibuprofen 600 mg tablet 600 mg PO Q6H PRN PRN 03/17/16 amoxicillin 875 mg-potassium 1 tab PO BID 10 days #20 tabs 02/08/24 clavulanate 125 mg tablet Allergies Allergy/AdvReac Type Severity Reaction Status Date / Time latex Allergy Unknown BREAKS OUT Unverified 02/08/24 20:21 IN WATER BLISTERS venom-honey bee Allergy Unknown swelling Unverified 02/08/24 20:21 [bee venom (honey bee)] codeine AdvReac Unknown COULD Unverified 02/08/24 20:21 NOT SLEEP FOR 3 DAYS General Stated Complaint: DentalOral ADWOA: 4 Review of Systems All systems reviewed & are unremarkable except as noted in HPI and below Exam Narrative Exam Narrative: GENERAL APPEARANCE: Well-nourished, non-toxic, awake and alert, atraumatic, no acute distress. SKIN: Warm, pink, dry, intact, without rashes/lesions/ulcerations. HEAD: Normocephalic, atraumatic, normal hair distribution for gender/age. EYES: Pupils PERRLA, EOMs intact without nystagmus, normal conjunctiva, no exudates on lids/lashes. ENT: Nares patent, no circumoral cyanosis, diffuse dental decay and caries without visible gingival abscess, no fluctuance to the gumline above the upper left teeth, mild facial swelling without hernandez erythema, no trismus, no focal changes, no neck swelling, uvula midline. NECK: Supple, trachea midline, painless cervical ROM. LUNGS/CHEST: Non-labored respirations, normal A/P diameter, symmetrical expansion, no chest wall deformity HEART (CV/PV): No peripheral edema, no JVD. ABDOMEN: Soft, non-distended, no guarding. MSK: Normal ROM, no swelling/deformity to bilateral UEs or LEs, moving all extremities without weakness, no cyanosis, spine midline without tenderness, normal curvature. NEURO: Mental Status AAOx4 - alert to person, place, time, events No facial droop, no forehead involvement. Motor: No focal weakness - strength 5/5 in bilateral UEs and LEs, proximal and distal, symmetric. Sensory: sensation intact to light touch globally. Gait normal: patient ambulated without ataxia into ED room. PSYCH: euthymic, cooperative, pleasant, appropriate speech Course Vital Signs Vital signs: Vital Signs Temperature 37.1 C 02/08/24 20:17 Pulse 79 02/08/24 20:17 Respiratory Rate 15 02/08/24 20:17 Blood Pressure 148/88 H 02/08/24 20:17 Pulse Oximetry 98 02/08/24 20:17 Temperature 37.1 C 02/08/24 20:19 Pulse 79 02/08/24 20:19 Respiratory Rate 15 02/08/24 20:19 Respiratory Effort Normal 02/08/24 20:19 Blood Pressure 148/88 H 02/08/24 20:19 Blood Pressure Position Sitting 02/08/24 20:19 Pulse Oximetry 98 02/08/24 20:19 Oxygen Delivery Method Room Air 02/08/24 20:19 Oxygen Flow Rate 0 02/08/24 20:19 Medical Decision Making This dictation utilizes [id number] dictation software and may contain unedited grammatical errors. 43 year-old female presents to ED today by POV/ambulating with a chief complaint of L cheek swelling and dental infection with onset noticed for the past few days- but the swelling to L cheek increased this morning. Quality described as throbbing pain, upper L canine area, no radiation to muffled vocal changes, neck swelling, hernandez facial redness, trismus, dysphagia, inability to tolerate PO in take. Severity is described as severe. Palliating factors include Tylenol & ibuprofen and Orajel with mild relief. Provoking factors include nothing specific. Events leading up to the incident/Associated Symptoms: Patient has diffuse dental caries. Patients' medical history: Diffuse dental caries. Family and social history: Contributory. Pertinent exam findings / vital signs include diffuse dental decay and caries without visible gingival abscess, no fluctuance to the gumline above the upper left teeth, mild facial swelling without hernandez erythema, no trismus, no focal changes, no neck swelling, uvula midline. Differential / pathologies of concern include Dental Infection, Dental Abscess, not RECEIVING SUPERVISOR/RPA, not trismus, not epiglottitis. Diagnostic studies of: -none. Interventions of: -Outpatient Rx for Augmentin. ED Course/Assessment/Plan: 43-year-old female presents with diffuse dental decay and left upper dental pain without overt gingival abscess, has mild left cheek swelling without hernandez erythema, no trismus, no vocal changes, do not suspect more insidious pathology at this time. Counseled the patient on the need for outpatient antibiotics and dental follow-up, continue therapeutic dosing Tylenol and NSAIDs as well as homeopathic remedies like close for dental pain and Orajel and salt water gargles. Strict return criteria for trismus, vocal changes, worsening fever or facial swelling with redness. Findings not consistent with RECEIVING SUPERVISOR/RPA, trismus, epiglottitis. Disposition of Dental Infection. Patient verbalized understanding of the plan and return to ED criteria and engaged in shared decision making. Medical Records Medical records reviewed: Yes I reviewed the patient's medical records. Quality:SDOH Health Related Social Needs: No Data to Display PFSH All Active Problems (Updated 02/08/24 @ 20:37 by SHWETHA Patton) Dental infection (Acute) Medical History (Updated 02/08/24 @ 20:37 by SHWETHA Patton) Pelvic pain in female Onset 09/2014. Mirena IUD removed. Neg GC/CT. Family History Mother Alcohol abuse Sister Asthma Other Hypothyroidism Social History Smoking/Tobacco Use Status: Current every day Smoking risk assessment performed?: Yes Drug use: Never Do you feel safe in your relationship?: Yes
[2024-02-08] MEDS: Amoxicillin 875/Clav. 125 TAB PO (20:46)
== END 2024-02-08 20:46 | disposition home or self-care (01) ==
PROVIDERS: Emergency Provider Physician Assistant
DX: R68.84 Jaw pain (principal); K04.7 Periapical abscess without sinus
CPT/HCPCS: 99283

== ENCOUNTER 2025-02-24 10:07 | Observation (INO) | payer MEDICAID, SELFPAY ==
[2025-02-24 10:08] VITALS: BP 153/87; PULSE 102; RESP 18; TEMP 36.8; O2SAT 97
--- NOTE | 2025-02-24 10:15 | ED.GENADUL_ITS ---
Discharge Plan Disposition Patient Disposition: Admit to [facility] Condition: Stable Discharge Details Clinical Impression: Gallstone pancreatitis, Choledocholithiasis Primary Care Provider: Unknown,Unknown ED Provider: Nathanael River Home Meds and New Rx's Prescriptions: No Action epinephrine [EpiPen 2-Rey] 0.3 MG/0.3 ML auto-injector 0.3 mg IM ONCE Patient Comments: I have never used 06/07/16 Women's Daily Multivitamin 1 EACH tablet 1 ea PO DAILY acetaminophen [Tylenol] 325 MG tablet 650 mg PO Q4H PRN PRN0RF ibuprofen 600 MG tablet 600 mg PO Q6H PRN PRN0RF lorazepam 1 mg Tablet 1 tab PO PRN PRN lamotrigine [Lamictal] 100 mg Tablet 150 mg PO DAILY HPI General Date/Time Provider Initiated Documentation: 02/24/25 10:16 . HPI Narrative: 44 year-old female presents to ED today by POV/ambulating with a chief complaint of upper abdominal pain, vomiting, not passing gas after eating [employer] last night- had a BM after that meal last night. Quality described as severe pain in central/R upper abdomen, felt like indigestion at first, no radiation to hematemesis, dysuria, fever, chest pain, shortness of breath, cough, endorses vomiting with any oral intake. Severity is described as 9-10/10. Palliating factors include nothing specific. Provoking factors include nothing specific. Events leading up to the incident/Associated Symptoms: Patient endorses family history of gallstones. Patient not anticoagulated. Related Data Home Medications ?Medication ?Instructions ?Recorded ?Confirmed epinephrine 0.3 mg/0.3 mL 0.3 mg IM ONCE 03/15/1601/28 0 injection, auto-injector (EpiPen 2-Rey) [id number]-minerals 18 1 ea PO DAILY 6 02/24/25 mg-0.4 mg tablet (Women's Daily Multivitamin) acetaminophen 325 mg tablet 650 mg (2 x 325 mg) PO Q4H PRN PRN 03/17/16 02/24/25 (Tylenol) ibuprofen 600 mg tablet 600 mg PO Q6H PRN PRN 02/24/25 lamotrigine 100 mg tablet 150 mg PO DAILY 08/21/18 (Lamictal) lorazepam 1 mg tablet 1 tab PO PRN PRN 08/21/18 Previous Rx's ?Medication ?Instructions ?Recorded acetaminophen 325 mg tablet 650 mg (2 x 325 mg) PO Q4H PRN PRN 03/17/16 (Tylenol) ibuprofen 600 mg tablet 600 mg PO Q6H PRN PRN Allergies Allergy/AdvReac Type Severity Reaction Status Date / Time latex Allergy Unknown BREAKS OUT Unverified 02/24/25 10:13 IN WATER BLISTERS venom-honey bee (bee venom Allergy Unknown swelling Unverified 02/24/25 10:13 (honey bee)) codeine AdvReac Unknown COULD Unverified 02/24/25 10:13 NOT SLEEP FOR 3 DAYS General Stated Complaint: Abd Prob ADWOA: 3 Review of Systems All systems reviewed & are unremarkable except as noted in HPI and below Exam Narrative Exam Narrative: GENERAL APPEARANCE: Well-nourished, non-toxic, awake and alert, atraumatic, mild acute distress. SKIN: Warm, pink, diaphoretic, intact, without rashes/lesions/ulcerations. HEAD: Normocephalic, atraumatic, normal hair distribution for gender/age. EYES: Normal conjunctiva, no exudates on lids/lashes. ENT: Nares patent, no circumoral cyanosis, no facial swelling NECK: Supple, trachea midline, painless cervical ROM. LUNGS/CHEST: Lungs CTA bilaterally- no rhonchi/rales/wheezes diffusely, non- labored respirations, normal A/P diameter, symmetrical expansion, no chest wall deformity HEART (CV/PV): Regular rate and rhythm without murmur, no peripheral edema, no JVD. ABDOMEN: Normoactive bowel sounds, soft, non-distended, no guarding, + epigastric tenderness with Gamboa's sign, no CVA tenderness to percussion bilaterally MSK: Normal ROM, no swelling/deformity to bilateral UEs or LEs, moving all extremities without weakness, no cyanosis, spine midline without tenderness, normal curvature. NEURO: Mental Status AAOx4 - alert to person, place, time, events No facial droop, no forehead involvement. Motor: No focal weakness - strength 5/5 in bilateral UEs and LEs, proximal and distal, symmetric. Sensory: sensation intact to light touch globally. Gait normal: patient ambulated without ataxia into ED room. PSYCH: euthymic, cooperative, pleasant, appropriate speech Course Vital Signs Vital signs: Vital Signs Temperature 36.8 C 02/24/25 10:08 Pulse 102 H 02/24/25 10:08 Respiratory Rate 18 02/24/25 10:08 Blood Pressure 153/87 H 02/24/25 10:08 Pulse Oximetry 97 02/24/25 10:08 Temperature 36.8 C 02/24/25 10:08 Temperature Source Oral 02/24/25 10:08 Pulse 102 H 02/24/25 10:08 Respiratory Rate 18 02/24/25 10:08 Blood Pressure 153/87 H 02/24/25 10:08 Blood Pressure Position Sitting 02/24/25 10:08 Pulse Oximetry 97 02/24/25 10:08 Oxygen Delivery Method Room Air 02/24/25 10:08 Oxygen Flow Rate 0 02/24/25 10:08 Pain Level 9 02/24/25 10:08 Medical Decision Making This dictation utilizes [id number] dictation software and may contain unedited grammatical errors. 44 year-old female presents to ED today by POV/ambulating with a chief complaint of upper abdominal pain, vomiting, not passing gas after eating [employer] last night- had a BM after that meal last night. Quality described as severe pain in central/R upper abdomen, felt like indigestion at first, no radiation to hematemesis, dysuria, fever, chest pain, shortness of breath, cough, endorses vomiting with any oral intake. Severity is described as 9-10/10. Palliating factors include nothing specific. Provoking factors include nothing specific. Events leading up to the incident/Associated Symptoms: Patient endorses family history of gallstones. Patients' medical history: Noncontributory. Family and social history: Endorses family history in her mother of gallbladder problems, otherwise noncontributory. Pertinent exam findings / vital signs include epigastric tenderness with positive Gamboa sign, benign cardiopulmonary exam, mild tachycardia on arrival at 102, afebrile but diaphoretic. Differential / pathologies of concern include gastroenteritis, GERD, PUD, small bowel obstruction, biliary colic. Diagnostic studies of: - CBC, CMP, lipase, lactate, UA, POC urine ,Magnesium, troponin, CT ABD/pelvis with contrast add-ons of alcohol level, conjugated bilirubin, PT/INR, acute hepatitis panel and blood cultures, as well as MRCP. -CBC shows mild leukocytosis at 12.2 without left shift, elevation of absolute neutrophils to 10.32 - Lactate 1.4 - CMP shows no major electrolyte derangement, does show significant elevations of LFTs with AST 325, ALT 301, alk phos 207, add on conjugated bilirubin - 0.7 possible early obstructive pattern - Lipase greater than 3000 - Troponin negative - Magnesium within normal limits - UA shows moderate blood, no UTI - Blood cultures pending, acute hepatitis panel pending - PT/INR WNL - CT shows copious amounts of gallstones in the biliary tract and a dilated common bile duct, suspect primary biliary cholangitis, shows fluid around the pancreas, shows no small bowel obstruction it does show wall thickening of the descending duodenum which is adjacent to the patient's pancreatitis and fluid seen -MRCP shows 2 gallstones in distal CBD, 5mm each Interventions of: -1g IVP APAP, 15mg IVP ketorolac, 4mg IVP Zofran with pain relief rated as tolerable by patient. - Added 4.5gm Zosyn, 1mg Ativan for pre-med for MRI. - Consulted with Gen Surg Dr. Sanderson @ 1200, plan confirmed for MRI, admission, down & back ERCP likely - Requested [facility] Consult for logistics of down & back ERCP @ 1340 with MRCP / CT pushed to them, call-back pending. - Hospitalist consult with Dr. Wadsworth @ 4390 - accepted for admission ED Course/Assessment/Plan: 44-year-old female who presents with persistent epigastric and right upper quadrant pain after eating [employer] last night, has not had a bowel movement since this meal, her CMP shows LFTs are increased, her lipase is above our labs measurement capability, she is afebrile and nontachycardic, pain is well- controlled with 1 dose of APAP/NSAIDs and Zofran, she has been given prophylactic Zosyn, MRCP confirmed that there are 2 stones in the distal common bile duct, Dr. Sanderson of general surgery is aware and will consult on the patient, [facility] consult is pending at time of admission to [facility] by Dr. Wadsworth. Patient is aware of the plan, last oral intake was [employer] meal last night. Spoke with Dr. Noonan of [facility]- recommends trending LFTs, states they would not trejo to perform an ERCP, there is some concern for infection with the patients pancreatitis and choledocholithiasis, but cholangitis not confirmed without fever or bacteremia at this point. They have no availability for down & back procedure today but would like an update tomorrow. Disposition of Gallstone Pancreatitis, Choledocholithiasis. Patient verbalized understanding of the plan and return to ED criteria and engaged in shared decision making. Medical Records Medical records reviewed: Yes I reviewed the patient's medical records. Imaging Data Radiologic Study: Attestation: I personally reviewed and interpreted this imaging study as follows: Imaging: CT Scan Radiologist's impression: EXAM: CT ABDOMEN PELVIS W CLINICAL HISTORY: epigastric pain, not passing flatus. TECHNIQUE: Imaging Protocol: Axial computed tomography images with coronal and sagittal reformatted images were created and reviewed CONTRAST MATERIAL: Intravenous: Omnipaque 350 Contrast volume:100 ml Oral: no COMPARISON: No exams were available for comparison FINDINGS: ABDOMEN and PELVIS: Lung Bases: No acute findings. Liver: Normal density. No suspicious mass. Gallbladder and biliary tract: The gallbladder contains multiple calcified stones. No abnormal gallbladder distention. The common bile duct is dilated to 10 millimeters. No significant intrahepatic biliary dilatation. Pancreas: On thickening of the pancreas with some surrounding fluid indicate pancreatitis.. No evidence of mass. Spleen: Normal. Kidneys: Normal size, contour and axis. No radiodense stones. No obstructive uropathy. No suspicious masses seen. Adrenal glands: No masses seen. Vasculature: Abdominal aorta non-dilated. Soft tissues: Unremarkable. Bladder: No gross wall thickening. No calculi.No focal mass. Bowel: There is mild wall thickening of the descending duodenum, adjacent to the pancreatic head consistent with secondary inflammation. No obstruction. Appendix normal. Normal quantity of stool. Peritoneal cavity: No ascites. No focal collection. No free air. Bones: Unremarkable for age. Reproductive organs: Unremarkable. Lymph nodes: No pathologically enlarged lymph nodes. IMPRESSION:: Inflammation of the pancreas with a small amount of surrounding fluid. Mild adjacent inflammation of the descending duodenum. Cholelithiasis. Dilatation of the common duct 10 millimeters. No visible co mmon duct stone. Radiologic Study #2: Attestation: I personally reviewed and interpreted this imaging study as follows: Imaging: MRI Radiologist's impression: EXAM: MR ABDOMEN WO CLINICAL HISTORY: ?choledocholithiasis TECHNIQUE: Multiplanar multisequence MRI of the Abdomen was performed. MRCP sequences also performed. COMPARISON: CT CT ABDOMEN PELVIS W from 02/24/2025 FINDINGS: The MRCP sequence is limited by motion. Lung bases: Unremarkable. Liver: Unremarkable. Gallbladder: Full of stones. No gallbladder wall thickening or pericholecystic fluid. Bile Ducts: The common bile duct dilated to 10 millimeters. There are 2 stones noted in the distal duct measuring 5 millimeters. Pancreas: fluid is again noted around the pancreas consistent with pancreatitis. Adrenals: Unremarkable. Kidneys: Unremarkable. Spleen: Unremarkable. Aorta: Unremarkable. Soft Tissues: Unremarkable. Bone: Unremarkable. Lymph Nodes: Unremarkable. Mesentery: No ascites. No focal fluid collection. Bowel: No abnormal dilatation or wall thickening. IMPRESSION: Two 5 millimeter stones are noted in the distal common bile duct. Multiple gallstones fill the gallbladder. No gallbladder inflammation. Fluid surrounding the pancreas consistent with pancreatitis. Lab Data Lab results reviewed: Yes I reviewed the patient's lab results. Labs: 02/24/25 13:25 Blood Blood Culture - Pending 02/24/25 13:16 Blood Blood Culture - Pending Laboratory Tests Range/Units 02/24/25 02/24/25 10:39 10:43 WBC (4.4-10.8) 10^3/uL 12.20 H RBC (3.93-5.22) 10^6/uL 4.75 Hgb (11.2-15.7) g/dL 13.5 Hct (36.0-46.0) % 41.4 MCV (80-95) fL 87 MCH (27.0-33.0) pg 28.4 MCHC (32.0-36.0) % 32.6 RDW (11.7-14.6) % 15.6 H Plt Count (130-400) 10^3/uL 450 H MPV (8.0-11.0) fL 9.4 Immature Gran % % 0.3 Neutrophils % % 84.6 Lymphocytes % % 8.4 Monocytes % % 6.4 Eosinophils % % 0.1 Basophils % % 0.2 Nucleated RBC % (0.0-0.3) % 0.0 Absolute Neutrophils (1.2-6.7) 10^3/uL 10.32 H Absolute Lymphocytes (1.2-3.4) 10^3/uL 1.02 L Absolute Monocytes (0.1-0.8) 10^3/uL 0.78 Absolute Eosinophils (0.0-0.7) 10^3/uL 0.01 Absolute Basophils (0.0-0.2) 10^3/uL 0.02 VBG Lactate (<or=2.0) mmol/L 1.4 Sodium (136-145) mmol/L 138 Potassium (3.5-5.1) mmol/L 3.9 Chloride (98-107) mmol/L 101 Carbon Dioxide (21.0-32.0) mmol/L 25.5 Anion Gap (3-11) mmol/L 11.5 H BUN (7-18) mg/dL 9 Creatinine (0.55-1.02) mg/dL 0.8 Est GFR (CKD-EPI 2020) (mL/min/1.73m2) 94.28 Glucose (74-106) mg/dL 153 H Calcium (8.5-10.1) mg/dL 10.5 H Magnesium (1.8-2.4) mg/dL 1.9 Total Bilirubin (0.2-1.0) mg/dL 1.1 H Conjugated Bilirubin (0.0-0.2) mg/dL 0.7 H AST (15-37) U/L 325 H ALT (14-59) U/L 301 H Alkaline Phosphatase (46-116) U/L 207 H Troponin I (<or=51) ng/L 5 Total Protein (6.4-8.2) g/dL 7.9 Albumin (3.4-5.0) g/dL 3.8 Lipase (<78) U/L > 3000 H Urine Color (Yellow) Yellow Urine Clarity (Clear) Cloudy Urine pH (5-8) 7.0 Ur Specific [place] (1.005-1.025) 1.025 Urine Protein (Neg-Trace) mg/dL Trace Urine Ketones (Negative) mg/dL Trace H Urine Blood (Negative) Moderate H Urine Nitrite (Negative) Negative Urine Bilirubin (Negative) Negative Urine Urobilinogen (Up to 0.2) mg/dL 0.2 Ur Leukocyte Esterase (Negative) Trace H Urine RBC (0-2) HPF 10-20 H Urine WBC (0-5) HPF 3-5 Ur Epithelial Cells (Negative) HPF Many Urine Crystals (Negative) HPF Many Amorphous Urine Bacteria (Negative) HPF Few Urine Casts (Negative) LPF Negative Urine Mucus (Negative) Trace Ur Culture Indicated? No Urine Glucose (Negative) mg/dL Negative Ethyl Alcohol (<10) mg/dL < 3.0 PFSH All Active Problems (Updated 02/24/25 @ 14:54 by SHWETHA Patton) Choledocholithiasis (Acute) Gallstone pancreatitis (Acute) Medical History (Updated 02/24/25 @ 14:54 by SHWETHA Patton) Pelvic pain in female Onset 09/2014. Mirena IUD removed. Neg GC/CT. Family History Mother Alcohol abuse Sister Asthma Other Hypothyroidism Social History Smoking/Tobacco Use Status: Current every day Smoking risk assessment performed?: Yes Alcohol Intake: never Drug use: Never Substance use type: does not use Do you feel safe at home: Yes Do you feel safe in your relationship?: Yes
--- NOTE | 2025-02-24 10:23 | DI.CT_ITS ---
Exam(s) CT ABDOMEN PELVIS W EXAM: CT ABDOMEN PELVIS W CLINICAL HISTORY: epigastric pain, not passing flatus. TECHNIQUE: Imaging Protocol: Axial computed tomography images with coronal and sagittal reformatted images were created and reviewed CONTRAST MATERIAL: Intravenous: Omnipaque 350 Contrast volume:100 ml Oral: no COMPARISON: No exams were available for comparison FINDINGS: ABDOMEN and PELVIS: Lung Bases: No acute findings. Liver: Normal density. No suspicious mass. Gallbladder and biliary tract: The gallbladder contains multiple calcified stones. No abnormal gallbladder distention. The common bile duct is dilated to 10 millimeters. No significant intrahepatic biliary dilatation. Pancreas: On thickening of the pancreas with some surrounding fluid indicate pancreatitis.. No evidence of mass. Spleen: Normal. Kidneys: Normal size, contour and axis. No radiodense stones. No obstructive uropathy. No suspicious masses seen. Adrenal glands: No masses seen. Vasculature: Abdominal aorta non-dilated. Soft tissues: Unremarkable. Bladder: No gross wall thickening. No calculi.No focal mass. Bowel: There is mild wall thickening of the descending duodenum, adjacent to the pancreatic head consistent with secondary inflammation. No obstruction. Appendix normal. Normal quantity of stool. Peritoneal cavity: No ascites. No focal collection. No free air. Bones: Unremarkable for age. Reproductive organs: Unremarkable. Lymph nodes: No pathologically enlarged lymph nodes. IMPRESSION:: Inflammation of the pancreas with a small amount of surrounding fluid. Mild adjacent inflammation of the descending duodenum. Cholelithiasis. Dilatation of the common duct 10 millimeters. No visible common duct stone. Findings called to ER provider. RADIATION DOSE DELIVERED: 759.94mGy.cm Total DLP DATA REPOSITORY: All CT scans at this facility are submitted to the National Radiology Data Registry (NRDR) Dose Index Registry (DIR) with the [employer] (ACR). RADIATION OPTIMIZATION: All CT scans at this facility use at least one of these dose optimization techniques: automated exposure control; mA and/or kV adjustment per patient size (includes targeted exams where dose is matched to clinical indication); or iterative reconstruction.
[2025-02-24 10:43] VITALS: BP 153/87; PULSE 102; RESP 18; TEMP 36.8; O2SAT 97
[2025-02-24] MEDS: ACETAMINOPHEN 1,000 MG/100 ML BAG 400 MG IVPB (10:51)
[2025-02-24 10:52] LABS: Abs Immature Grans 0.04 10^3/uL (0.0-0.06); HCT 41.4 % (36.0-46.0); HGB 13.5 g/dL (11.2-15.7); Immature Grans % 0.3 %; MCH 28.4 pg (27.0-33.0); MCHC 32.6 % (32.0-36.0); MCV 87 fL (80-95); MPV 9.4 fL (8.0-11.0); Platelet Count 450 10^3/uL (130-400); RBC 4.75 10^6/uL (3.93-5.22); RDW 15.6 % (11.7-14.6); RDW-SD 49.3 fL; WBC 12.20 10^3/uL (4.4-10.8)
[2025-02-24] MEDS: Ondansetron 4 MG/2 ML VIAL IVP (10:53)
[2025-02-24] MEDS: Ketorolac 15 MG/ML VIAL IVP (10:53)
[2025-02-24 11:00] LABS: Glucose Negative (Negative)
[2025-02-24 11:06] LABS: C & S Indicated? No
[2025-02-24] MEDS: Omnipaque 350 MG/ML 100 ML BTL IJ (11:29)
[2025-02-24] MEDS: Normal Saline - Diluent 50 ML VIAL IJ (11:31)
[2025-02-24 11:32] LABS: ALT 301 U/L (14-59); AST 325 U/L (15-37); Albumin 3.8 g/dL (3.4-5.0); Alkaline Phosphatase 207 U/L (46-116); Anion Gap 11.5 mmol/L (3-11); BUN 9 mg/dL (7-18); Bilirubin, Total 1.1 mg/dL (0.2-1.0); CO2 25.5 mmol/L (21.0-32.0); Calcium 10.5 mg/dL (8.5-10.1); Chloride 101 mmol/L (98-107); Estimated GFR 94.28 (mL/min/1.73m2); Glucose 153 mg/dL (74-106); Magnesium 1.9 mg/dL (1.8-2.4); Potassium 3.9 mmol/L (3.5-5.1); Sodium 138 mmol/L (136-145); Total Protein 7.9 g/dL (6.4-8.2); Troponin I 5 ng/L (<or=51)
--- NOTE | 2025-02-24 11:45 | DI.MRI_ITS ---
Exam(s) MR ABDOMEN WO EXAM: MR ABDOMEN WO CLINICAL HISTORY: ?choledocholithiasis TECHNIQUE: Multiplanar multisequence MRI of the Abdomen was performed. MRCP sequences also performed. COMPARISON: CT CT ABDOMEN PELVIS W from 02/24/2025 FINDINGS: The MRCP sequence is limited by motion. Lung bases: Unremarkable. Liver: Unremarkable. Gallbladder: Full of stones. No gallbladder wall thickening or pericholecystic fluid. Bile Ducts: The common bile duct dilated to 10 millimeters. There are 2 stones noted in the distal duct measuring 5 millimeters. Pancreas: fluid is again noted around the pancreas consistent with pancreatitis. Adrenals: Unremarkable. Kidneys: Unremarkable. Spleen: Unremarkable. Aorta: Unremarkable. Soft Tissues: Unremarkable. Bone: Unremarkable. Lymph Nodes: Unremarkable. Mesentery: No ascites. No focal fluid collection. Bowel: No abnormal dilatation or wall thickening. IMPRESSION: Two 5 millimeter stones are noted in the distal common bile duct. Multiple gallstones fill the gallbladder. No gallbladder inflammation. Fluid surrounding the pancreas consistent with pancreatitis. Findings called to the ER provider. DATA REPOSITORY:
[2025-02-24 12:07] LABS: Lipase > 3000 U/L (<78)
[2025-02-24] MEDS: LORazepam 20 MG/10 ML VIAL IVP (12:10)
[2025-02-24 12:21] VITALS: BP 154/97; PULSE 71; RESP 12; TEMP 36.8; O2SAT 98
[2025-02-24 12:43] LABS: Bilirubin, Direct 0.7 mg/dL (0.0-0.2)
[2025-02-24] MEDS: PIPERACILLIN/TAZO 4.5 GM in Normal Saline 100 ML IVPB (13:30)
[2025-02-24] MEDS: Nicotine 14 MG/24 HR PATCH TD (13:43)
[2025-02-24 13:46] LABS: INR 1.0 (0.9-1.1); Prothrombin Time 9.9 sec (9.1-11.1)
[2025-02-24 14:48] VITALS: BP 160/88; PULSE 70; RESP 16; TEMP 36.9; O2SAT 97
--- NOTE | 2025-02-24 15:13 | W.PC.ACHO ---
Registration Status: REG ER Primary Language: Preferred Language: [place]az[place] ED Information & Data Chief Complaint Abd Prob 02/24/25 10:58 Chief Complaint Abd Prob 02/24/25 10:16 Triage Note pain in the abdomen after 02/24/25 10:08 eating [employer] last night . This morning started vomiting and having nausea, state she feels like an air bubble in her stomach Medical / Surgical History (Last Reviewed 08/21/18 @ 17:11 by Yazan Hidalgo MD) Pelvic pain in female Most Recent Vital Signs Temperature 36.9 C 02/24/25 14:48 Temperature Source Oral 02/24/25 14:48 Pulse 70 02/24/25 14:48 Pulse Rhythm Regular 02/24/25 12:21 Pulse Strength Normal 02/24/25 12:21 Respiratory Rate 16 02/24/25 14:48 Respiratory Effort Normal, Non-Labored 02/24/25 12:21 Respiratory Depth Normal 02/24/25 12:21 Respiratory Pattern Normal 02/24/25 12:21 Blood Pressure 160/88 H 02/24/25 14:48 Blood Pressure Mean 112 02/24/25 14:48 Blood Pressure Position Sitting 02/24/25 12:21 Pulse Oximetry 97 02/24/25 14:48 Oxygen Delivery Method Room Air 02/24/25 12:21 Oxygen Flow Rate 0 02/24/25 12:21 Pain Level 9 02/24/25 10:08 Allergies latex Allergy (Unknown, Unverified 02/24/25 10:13) BREAKS OUT IN WATER BLISTERS venom-honey bee (bee venom (honey bee)) Allergy (Unknown, Unverified 02/24/25 10:13) swelling codeine Adverse Reaction (Unknown, Unverified 02/24/25 10:13) COULD NOT SLEEP FOR 3 DAYS Precautions Isolation Standard precaution 02/24/25 10:58 Active Medications Generic Name Dose Route Start Last Admin Trade Name Freq PRN Reason Stop Dose Admin Iohexol 100 ml 02/24/25 11:30 02/24/25 11:29 Omnipaque 350 Mg/Ml 100 Ml Btl IJ 03/26/25 23:59 100 ml DIRECTED KEVIN Administration Lorazepam 1 mg 02/24/25 12:06 02/24/25 12:10 Lorazepam 20 Mg/10 Ml Vial IVP 1 mg Q2H PRN PRN Administration Sodium Chloride 50 ml 02/24/25 11:45 02/24/25 11:31 Normal Saline - Diluent 50 Ml Vial IJ 50 ml .FOR DI USE KEVIN Administration IV IV Catheter Type [Right 20 Antecubital Proximal Port] Diagnostics 02/24/25 02/24/25 02/24/25 Range/Units 13:16 10:43 10:39 WBC 12.20 H (4.4-10.8) 10^3/uL RBC 4.75 (3.93-5.22) 10^6/uL Hgb 13.5 (11.2-15.7) g/dL Hct 41.4 (36.0-46.0) % MCV 87 (80-95) fL MCH 28.4 (27.0-33.0) pg MCHC 32.6 (32.0-36.0) % RDW 15.6 H (11.7-14.6) % Plt Count 450 H (130-400) 10^3/uL MPV 9.4 (8.0-11.0) fL Immature Gran % 0.3 % Neutrophils % 84.6 % Lymphocytes % 8.4 % Monocytes % 6.4 % Eosinophils % 0.1 % Basophils % 0.2 % Nucleated RBC % 0.0 (0.0-0.3) % Absolute Neutrophils 10.32 H (1.2-6.7) 10^3/uL Absolute Lymphocytes 1.02 L (1.2-3.4) 10^3/uL Absolute Monocytes 0.78 (0.1-0.8) 10^3/uL Absolute Eosinophils 0.01 (0.0-0.7) 10^3/uL Absolute Basophils 0.02 (0.0-0.2) 10^3/uL PT 9.9 (9.1-11.1) sec INR 1.0 (0.9-1.1) VBG Lactate 1.4 (<or=2.0) mmol/L Sodium 138 (136-145) mmol/L Potassium 3.9 (3.5-5.1) mmol/L Chloride 101 (98-107) mmol/L Carbon Dioxide 25.5 (21.0-32.0) mmol/L Anion Gap 11.5 H (3-11) mmol/L BUN 9 (7-18) mg/dL Creatinine 0.8 (0.55-1.02) mg/dL Est GFR (CKD-EPI 2020) 94.28 (mL/min/1.73m2) Glucose 153 H (74-106) mg/dL Calcium 10.5 H (8.5-10.1) mg/dL Magnesium 1.9 (1.8-2.4) mg/dL Total Bilirubin 1.1 H (0.2-1.0) mg/dL Conjugated Bilirubin 0.7 H (0.0-0.2) mg/dL AST 325 H (15-37) U/L ALT 301 H (14-59) U/L Alkaline Phosphatase 207 H (46-116) U/L Troponin I 5 (<or=51) ng/L Total Protein 7.9 (6.4-8.2) g/dL Albumin 3.8 (3.4-5.0) g/dL Lipase > 3000 H (<78) U/L Urine Color Yellow (Yellow) Urine Clarity Cloudy (Clear) Urine pH 7.0 (5-8) Ur Specific [place] 1.025 (1.005-1.025) Urine Protein Trace (Neg-Trace) mg/dL Urine Ketones Trace H (Negative) mg/dL Urine Blood Moderate H (Negative) Urine Nitrite Negative (Negative) Urine Bilirubin Negative (Negative) Urine Urobilinogen 0.2 (Up to 0.2) mg/dL Ur Leukocyte Esterase Trace H (Negative) Urine RBC 10-20 H (0-2) HPF Urine WBC 3-5 (0-5) HPF Ur Epithelial Cells Many (Negative) HPF Urine Crystals Many Amorphous (Negative) HPF Urine Bacteria Few (Negative) HPF Urine Casts Negative (Negative) LPF Urine Mucus Trace (Negative) Ur Culture Indicated? No Urine Glucose Negative (Negative) mg/dL Ethyl Alcohol < 3.0 (<10) mg/dL Hepatitis A IgM Ab Pending Hep Bs Antigen Pending Hep B Core Total Ab Pending Hepatitis C Antibody Pending 02/24/25 13:25 Blood Culture - Pending Blood 02/24/25 13:16 Blood Culture - Pending Blood [id number] Documentation POC Urine Test Start: 02/24/25 10:24 Freq: .Urine Test Status: Active Protocol: Activity Type Activity Date Activity User E-sign Co-sign Detail Recorded Client Recorded Date Recorded By Document 02/24/25 10:52 CF [id number] 02/24/25 10:52 CF Intake and Output - 24 Hour Total 02/24/25 10:07 thru 02/24/25 13:55 Intake Total 200 Balance 200 Weight 102.965 kg Intake: IV 200 Falls Risk Assessment History of Falls No History 02/24/25 10:41 Contributing Factors No Factors 02/24/25 10:41 Ambulatory Aids Independent 02/24/25 10:41 Tubes/Lines None 02/24/25 10:41 Gait Evaluation No gait disturbance 02/24/25 10:41 Cognition No cognitive impairment 02/24/25 10:41 Fall Total Score 0 02/24/25 10:41 Level of Risk Standard/Low Risk 02/24/25 10:41 v v v v v v v v v Sending and/or Receiving Nurses: Please use comment section below to note any information pertinent to the patient hand-off not included above. Information / Comments: Report received from: zhanna
[2025-02-24 15:19] VITALS: BP 143/88; PULSE 69; RESP 16; TEMP 36.4; O2SAT 98
[2025-02-24] MEDS: HYDROmorphone 2 MG/ML SYR 0.5 MG IVP (16:09)
--- NOTE | 2025-02-24 16:15 | W.PM.HP.N ---
Date of service: 02/24/25 Time of Service: 16:15 Assessment and Plan Assessment and plan (1) Gallstone pancreatitis: Status: Acute Assessment and plan: Likely secondary to obstructing CBD stones Monitor lipase, LFTs, and clinical signs Supportive care: IVF, pain control, antiemetics NPO status, monitor for oral tolerance Continue Zosyn for potential infection given concern for ascending cholangitis (2) Choledocholithiasis: Status: Acute Assessment and plan: Confirmed on MRCP: two 5 mm distal CBD stones No current signs of cholangitis (afebrile, stable WBC) Monitor LFTs daily Plan for ERCP pending coordination with [facility] Surgery aware and will follow (3) Cholangitis: Status: Acute Assessment and plan: Likely due to inflammation and ductal obstruction Managed with APAP/NSAIDs; avoid opioids if possible Reassess pain control frequently (4) Abdominal pain: Status: Acute Assessment and plan: Likely due to inflammation and ductal obstruction Managed with APAP/NSAIDs; avoid opioids if possible Reassess pain control daily (5) Nausea & vomiting: Status: Acute Assessment and plan: Symptom of pancreatitis Treat with antiemetics (ondansetron PRN) Maintain NPO, advance diet cautiously (6) Leukocytosis: Status: Acute Assessment and plan: Likely reactive to pancreatitis Monitor CBC Blood cultures pending History of Present Illness Narrative: The patient is a 44-year-old female with no known chronic medical conditions who presented to the ED with acute onset of severe epigastric and right upper quadrant abdominal pain, rated 9?10/10 in severity, following ingestion of a Fernandez?s meal the prior evening. She also reported multiple episodes of vomiting, inability to tolerate oral intake, and absence of flatus since the episode began. She denied hematemesis, fever, chest pain, shortness of breath, or dysuria. Family history is significant for gallstones in her mother. She is not anticoagulated. On ED presentation, patient was found to be tachycardic (HR 102), hypertensive (BP 153/87), afebrile (36.8?C), and diaphoretic, with notable epigastric tenderness and a positive Gamboa?s sign. Labs revealed: Lipase >3000 Elevated LFTs: AST 325, ALT 301, Alk Phos 207 Mild leukocytosis (WBC 12.2) with neutrophilic predominance Normal troponin, lactate, and electrolytes UA with moderate blood, no infection Imaging: CT Abdomen/Pelvis: Gallstones in gallbladder, dilated common bile duct (CBD 10 mm), surrounding pancreatic inflammation consistent with pancreatitis, and duodenal wall thickening. MRCP: Confirmed 2 stones in distal CBD (5 mm each), gallbladder filled with stones, and fluid around the pancreas without signs of cholecystitis. Initial ED management included IV acetaminophen, ketorolac, and ondansetron with symptom relief, as well as prophylactic Zosyn and pre-medication for imaging with lorazepam. General surgery and GI at [facility] were consulted. [facility] recommends trending LFTs and does not advise urgent ERCP given no fever or bacteremia at this time. GI procedure to be re-evaluated depending on clinical course. The clinical impression is consistent with gallstone pancreatitis and choledocholithiasis. The patient is admitted to the medical floor for further testing and treatment. Patient is in agreement with paln of care. Patient is a full code. Review of Systems Narrative: All systems reviewed and negative except as per HPI. GI: Positive for nausea, vomiting, abdominal pain, no bowel movement since onset, not passing gas Constitutional: Mild diaphoresis, no fever/chills , Resp, Neuro, Psych: Negative PFSH All Active Problems (Updated 02/24/25 @ 16:35 by Bhavna York NP) Cholangitis (Acute) Abdominal pain (Acute) Leukocytosis (Acute) Nausea & vomiting (Acute) Choledocholithiasis (Acute) Gallstone pancreatitis (Acute) Medical History (Updated 02/24/25 @ 16:35 by Bhavna York NP) Pelvic pain in female Onset 09/2014. Mirena IUD removed. Neg GC/CT. Family History Mother Alcohol abuse Sister Asthma Other Hypothyroidism Social History Smoking/Tobacco Use Status: Current every day Smoking risk assessment performed?: Yes Alcohol Intake: never Drug use: Never Substance use type: does not use Housing: apartment Do you feel safe at home: Yes Do you feel safe in your relationship?: Yes Meds Allergies and Home Medications Allergies Allergy/AdvReac Type Severity Reaction Status Date / Time latex Allergy Unknown BREAKS OUT Unverified 02/24/25 10:13 IN WATER BLISTERS venom-honey bee (bee venom Allergy Unknown swelling Unverified 02/24/25 10:13 (honey bee)) codeine AdvReac Unknown COULD Unverified 02/24/25 10:13 NOT SLEEP FOR 3 DAYS Home Medications ?Medication ?Instructions ?Recorded ?Confirmed ?Type epinephrine 0.3 mg/0.3 mL 0.3 mg IM ONCE 03/15/16 02/24/25 History injection, auto-injector (EpiPen 2-Rey) kpyuimhohvly-Ca-qula-minerals 18 1 ea PO DAILY 03/15/16 02/24/25 History mg-0.4 mg tablet (Women's Daily Multivitamin) acetaminophen 325 mg tablet 650 mg (2 x 325 mg) PO Q4H PRN PRN 03/17/16 02/24/25 Rx (Tylenol) ibuprofen 600 mg tablet 600 mg PO Q6H PRN PRN 03/17/16 02/24/25 Rx lamotrigine 100 mg tablet 150 mg PO DAILY 08/21/18 02/24/25 History (Lamictal) lorazepam 1 mg tablet 1 tab PO PRN PRN 08/21/18 02/24/25 History Exam Narrative Exam Narrative: General: Alert, mild distress, diaphoretic HEENT: Normocephalic, atraumatic, oropharynx moist Neck: Supple, no lymphadenopathy, trachea midline Cardiac: Regular rate and rhythm, no murmurs Lungs: CTA bilaterally, no rales/wheezes Abdomen: Soft, non-distended, + epigastric tenderness, + Gamboa?s sign, no guarding/rebound Extremities: No edema, full ROM Neuro: A&O x4, non-focal exam Psych: Pleasant, cooperative, euthymic Results Labs 02/24/25 10:39 02/24/25 10:39 Labs: Laboratory Results - last 24 hr 02/24/25 02/24/25 02/24/25 10:39 10:43 13:16 WBC 12.20 H RBC 4.75 Hgb 13.5 Hct 41.4 MCV 87 MCH 28.4 MCHC 32.6 RDW 15.6 H Plt Count 450 H MPV 9.4 Immature Gran % 0.3 Neutrophils % 84.6 Lymphocytes % 8.4 Monocytes % 6.4 Eosinophils % 0.1 Basophils % 0.2 Nucleated RBC % 0.0 Absolute Neutrophils 10.32 H Absolute Lymphocytes 1.02 L Absolute Monocytes 0.78 Absolute Eosinophils 0.01 Absolute Basophils 0.02 PT 9.9 INR 1.0 VBG Lactate 1.4 Sodium 138 Potassium 3.9 Chloride 101 Carbon Dioxide 25.5 Anion Gap 11.5 H BUN 9 Creatinine 0.8 Est GFR (CKD-EPI 2020) 94.28 Glucose 153 H Calcium 10.5 H Magnesium 1.9 Total Bilirubin 1.1 H Conjugated Bilirubin 0.7 H AST 325 H ALT 301 H Alkaline Phosphatase 207 H Troponin I 5 Total Protein 7.9 Albumin 3.8 Lipase > 3000 H Urine Color Yellow Urine Clarity Cloudy Urine pH 7.0 Ur Specific [place] 1.025 Urine Protein Trace Urine Ketones Trace H Urine Blood Moderate H Urine Nitrite Negative Urine Bilirubin Negative Urine Urobilinogen 0.2 Ur Leukocyte Esterase Trace H Urine RBC 10-20 H Urine WBC 3-5 Ur Epithelial Cells Many Urine Crystals Many Amorphous Urine Bacteria Few Urine Casts Negative Urine Mucus Trace Ur Culture Indicated? No Urine Glucose Negative Ethyl Alcohol < 3.0 Last Vital Signs Temp 36.4 C L 02/24/25 15:19 Pulse 69 02/24/25 15:19 Resp 16 02/24/25 15:19 BP 143/88 H 02/24/25 15:19 Pulse Ox 98 02/24/25 15:19 Time Spent Time spent with Patient: 40-54 minutes Time was spent: preparing to see the patient(eg.review tests), obtaining and/or reviewing separately otained hiistory, ordering medications,tests, procedures, referring, communicating with other health child adolescent care, indepentently interpreting results, counseling the patient and care coordination
--- NOTE | 2025-02-24 17:39 | W.SURGCON ---
Date of service: 02/24/25 Time of Service: 17:39 Assessment and Plan Assessment and plan (1) Choledocholithiasis: Status: Acute Assessment and plan: History, physical, imaging and biochemistry all support the diagnosis of biliary obstruction and gallstone pancreatitis. Arrangements are being made to get her down to [facility] for an ERCP, and certainly once the duct has been cleared, we can proceed with a laparoscopic cholecystectomy. History of Present Illness History of Present Illness Chief Complaint: Abdominal pain Narrative: Jing is 44 years old. She comes to the emergency department with acute onset of abdominal pain that started last night. She had Fernandez's, and describes the pain as sharp, mostly in the mid epigastrium. She thought it was heartburn, but failed to resolve today, so she came to the emergency department. She does not believe this is ever happened before. In the emergency department, she had a mild leukocytosis, and elevated liver function test. Her lipase was greater than 3000. She underwent a CT scan that demonstrates cholelithiasis, and a dilated common bile duct. This was followed up with an MRCP that does confirm choledocholithiasis She denies any previous abdominal surgical history. Review of Systems Constitutional Constitutional: Denies fever(s) and Reports poor appetite Eyes Eyes: Reports system reviewed and no additional complaints, except as documented ENT Ears, Nose, Mouth, and Throat: Reports system reviewed and no additional complaints, except as documented Cardiovascular Cardiovascular: Denies chest pain and Denies dyspnea Respiratory Respiratory: Denies cough and Denies dyspnea Gastrointestinal Gastrointestinal: Reports abdominal pain, Denies change in bowel habits, Reports dyspepsia, Reports nausea and Reports vomiting Hematologic/Lymphatic Hematologic/Lymphatic: Denies easy bleeding and Denies easy bruising PFSH All Active Problems (Updated 02/24/25 @ 16:35 by Bhavna York NP) Cholangitis (Acute) Abdominal pain (Acute) Leukocytosis (Acute) Nausea & vomiting (Acute) Choledocholithiasis (Acute) Gallstone pancreatitis (Acute) Medical History (Updated 02/24/25 @ 16:35 by Bhavna York NP) Pelvic pain in female Onset 09/2014. Mirena IUD removed. Neg GC/CT. Family History Mother Alcohol abuse Sister Asthma Other Hypothyroidism Social History Smoking/Tobacco Use Status: Current every day Smoking risk assessment performed?: Yes Alcohol Intake: never Drug use: Never Substance use type: does not use Housing: apartment Do you feel safe at home: Yes Do you feel safe in your relationship?: Yes Exam Const General: cooperative and comfortable HENMT Head: normal to inspection Eyes General: appearance normal, both eyes and all related structures Resp Auscultation: clear to auscultation bilaterally Cardio Rate: regular rate Rhythm: regular rhythm Heart Sounds: S1 normal and S2 normal GI Inspection: normal to inspection and non-distended Palpation: soft and tender (Mid epigastrium) Percussion: normal to percussion Results Last Vital Signs Temp 97.5 F L 02/24/25 15:19 Pulse 69 02/24/25 15:19 Resp 16 02/24/25 15:19 BP 143/88 H 02/24/25 15:19 Pulse Ox 98 02/24/25 15:19 Labs 02/24/25 10:39 02/24/25 10:39 Labs: Laboratory Results - last 24 hr 02/24/25 02/24/25 02/24/25 10:39 10:43 13:16 WBC 12.20 H RBC 4.75 Hgb 13.5 Hct 41.4 MCV 87 MCH 28.4 MCHC 32.6 RDW 15.6 H Plt Count 450 H MPV 9.4 Immature Gran % 0.3 Neutrophils % 84.6 Lymphocytes % 8.4 Monocytes % 6.4 Eosinophils % 0.1 Basophils % 0.2 Nucleated RBC % 0.0 Absolute Neutrophils 10.32 H Absolute Lymphocytes 1.02 L Absolute Monocytes 0.78 Absolute Eosinophils 0.01 Absolute Basophils 0.02 PT 9.9 INR 1.0 VBG Lactate 1.4 Sodium 138 Potassium 3.9 Chloride 101 Carbon Dioxide 25.5 Anion Gap 11.5 H BUN 9 Creatinine 0.8 Est GFR (CKD-EPI 2020) 94.28 Glucose 153 H Calcium 10.5 H Magnesium 1.9 Total Bilirubin 1.1 H Conjugated Bilirubin 0.7 H AST 325 H ALT 301 H Alkaline Phosphatase 207 H Troponin I 5 Total Protein 7.9 Albumin 3.8 Lipase > 3000 H Urine Color Yellow Urine Clarity Cloudy Urine pH 7.0 Ur Specific [place] 1.025 Urine Protein Trace Urine Ketones Trace H Urine Blood Moderate H Urine Nitrite Negative Urine Bilirubin Negative Urine Urobilinogen 0.2 Ur Leukocyte Esterase Trace H Urine RBC 10-20 H Urine WBC 3-5 Ur Epithelial Cells Many Urine Crystals Many Amorphous Urine Bacteria Few Urine Casts Negative Urine Mucus Trace Ur Culture Indicated? No Urine Glucose Negative Ethyl Alcohol < 3.[address] scan report/results: report reviewed and image reviewed CT scan - pelvis: report reviewed and image reviewed
[2025-02-24] MEDS: PIPERACILLIN/TAZO 3.375 GM in Normal Saline 50 ML IVPB (20:09)
[2025-02-24] MEDS: Normal Saline 1,000 ML 125 ML IV (22:44)
[2025-02-25] VITALS (13 sets, daily range): BP systolic 112–183; BP diastolic 56–92; PULSE 52–78; RESP 15–21; TEMP 36.3–36.8; O2SAT 93–98; BMI 36.3
[2025-02-25] MEDS: PIPERACILLIN/TAZO 3.375 GM in Normal Saline 50 ML IVPB ×2 (04:04→11:52)
[2025-02-25 06:31] LABS: Abs Immature Grans 0.04 10^3/uL (0.0-0.06); HCT 38.9 % (36.0-46.0); HGB 12.7 g/dL (11.2-15.7); Immature Grans % 0.3 %; MCH 28.7 pg (27.0-33.0); MCHC 32.6 % (32.0-36.0); MCV 88 fL (80-95); MPV 9.6 fL (8.0-11.0); Platelet Count 428 10^3/uL (130-400); RBC 4.42 10^6/uL (3.93-5.22); RDW 15.8 % (11.7-14.6); RDW-SD 50.7 fL; WBC 13.06 10^3/uL (4.4-10.8)
[2025-02-25] MEDS: Normal Saline 1,000 ML 125 ML IV (06:51)
[2025-02-25 07:10] LABS: ALT 190 U/L (14-59); AST 88 U/L (15-37); Albumin 3.5 g/dL (3.4-5.0); Alkaline Phosphatase 181 U/L (46-116); Anion Gap 11.3 mmol/L (3-11); BUN 12 mg/dL (7-18); Bilirubin, Total 0.6 mg/dL (0.2-1.0); CO2 24.7 mmol/L (21.0-32.0); Calcium 8.8 mg/dL (8.5-10.1); Chloride 104 mmol/L (98-107); Estimated GFR 94.28 (mL/min/1.73m2); Glucose 93 mg/dL (74-106); Magnesium 2.0 mg/dL (1.8-2.4); Potassium 4.3 mmol/L (3.5-5.1); Sodium 140 mmol/L (136-145); Total Protein 7.2 g/dL (6.4-8.2)
[2025-02-25 08:19] LABS: Lipase 130 U/L (<78)
[2025-02-25 09:52] LABS: Hepatitis A Antibody IgM Negative (Negative); Hepatitis C Ab w Rflx HCV PCR Negative (Negative)
--- NOTE | 2025-02-25 10:12 | INITIAL_ITS ---
Date of service: 02/25/25 Time of Service: 10:13 Care Management Initial Assmt Initial Assessment Reason for Hospitalization: gallstone pancreatitis Functional Status/Living Situation Patient Presentation: Jing presented to the ED yesterday morning with c/o upper abdominal pain and vomiting. She described the pain as severe. Imaging revealed stones and pancreatitis. Jing will be going to the OR for gallbladder removal later today. Jing was lying in bed, napping, when CM met with her today. Her live in boyfriend, Kade, was also present. Jing woke easily, and was very pleasant, as was Kade. She is eager to have her surgery because she's hungry and is feeling better. Jing and Kade live in subsidized housing in [place] with their 8yo son, Ritesh. Together Jing and Kade have 10 children. Jing does not have a PCP, and will be set up with the T-doc (Dr. Quezada) on discharge. She was pleased to know this. Town of Residence: [facility] Resides with: Spouse (Kade and son Ritesh(Lloyd)) Significant Other/Family: Local (Jing's Dad, Darryn) Natural Supports: family Employment Status: Disabled Instrumental Activities of Daily Living (ADLs): Independent Activities/Hobbies/SocialSupport: aMre really enjoy the outdoors in the good weather. They enjoy fishing, swimming, hiking and kayaking. In winter Jing hibernates. Advance Directives Advance Directives: Do you have an Advance Directive: N , 08:52 AD On File at [facility]: N 12/10/14, 08:52 Date Asked 02/24/25 02/24/25, 10:14 AD Date Reviewed COLST On File at [facility] COLST Date Scanned Code Status Resuscitation Status Full Code Insurance Coverage/Financial Issues Insurance: Medicaid of [place]? Care Team Visit Care Team Role Provider Type Bhavna York NP MD [facility] STAFF PHYSICIAN Unknown Unknown Primary Care Provider STAFF PHYSICIAN Alexis Sanderson MD Other Providers [facility] STAFF PHYSICIAN SHWETHA [place] Emergency Provider PHYSICIANS RISK ASSESSMENT ANALYST Ed Wadsworth MD Admit Provider [facility] STAFF PHYSICIAN Attending Provider Discharge Anticipated Barriers to Discharge: None Identified Patient/Family Education Needs: Review discharge instructions, discuss Ask Me Three Transportation: Private vehicle Plan: Anticipate that Jing will be discharged home with no new services. She will f/u with the surgeon and with the T-doc- Dr. Quezada at [facility]. Jing will continue per her plan of care and transport home in a private vehicle. CM will continue to follow. Social Determinants of Health Screening Social Determinants of health last assessed in clinic: 02/25/25 Will the Patient Participate in the Screening?: Yes Do you worry about having a steady place to live?: no Problems where you live: no known problems In the past 12 months, have you had to go without electric, gas, oil or water in your home?: no 1. Within the past 12 months, we worried whether our food would run out before we got money to buy more.: Sometimes true 2. Within the past 12 months, the food we bought just didn't last and we didn't have money to get more.: Sometimes true Has lack of transportation kept you from medical appointments or from doing things needed for daily living?: no Has anyone in your life made you feel unsafe or unsupported?: no How hard is it for you to pay for the very basics like food, housing, medical care, and heating? Would you say it is:: Not hard at all Do you want help finding or keeping work or a job?: I do not need or want help If for any reason you need help with day-to-day activities such as bathing, preparing meals, shopping, managing finances, etc., do you get the help you need?: I don?t need any help How often do you feel lonely or isolated from those around you?: Never Do you speak a language other than Singaporean at home?: Yes Does the patient want assistance with any of the above?: No Health Related Social Needs Health related social needs: food insecurity (Z59.41) and education (Z55.6) Health related social needs details: N/A PFSH All Active Problems (Updated 02/24/25 @ 16:35 by Bhavna York NP) Cholangitis (Acute) Abdominal pain (Acute) Leukocytosis (Acute) Nausea & vomiting (Acute) Choledocholithiasis (Acute) Gallstone pancreatitis (Acute) Medical History (Updated 02/24/25 @ 16:35 by Bhavna York NP) Pelvic pain in female Onset 09/2014. Mirena IUD removed. Neg GC/CT. Family History Mother Alcohol abuse Sister Asthma Other Hypothyroidism Social History Smoking/Tobacco Use Status: Current every day Smoking risk assessment performed?: Yes Alcohol Intake: never Drug use: Never Substance use type: does not use Housing: apartment Do you feel safe at home: Yes Do you feel safe in your relationship?: Yes
--- NOTE | 2025-02-25 11:43 | W.PM.PROGNOT ---
Date of Service Date of service: 02/25/25 Time of Service: 11:43 Assessment and Plan Assessment and plan (1) Gallstone pancreatitis: Status: Acute Assessment and plan: Likely secondary to obstructing CBD stones - discussed with Dr Lopez @ [facility] - labs are improved, patient has improved - Dr Lopez reviewed the labs and feels it is ok for patient to have GB removed and she does not need ERCP; She said maybe after if there is IOC+, surgeon to determine. I spoke with Dr Sanderson - he is in agreement with this and will take the patient to the OR this afternoon. I spoke with the patient and she agrees to this plan. Monitor lipase, LFTs, and clinical signs - all improved today Supportive care: IVF, pain control, antiemetics - no pain meds needed overnight; continue MIVF NPO status, will go to OR this afternoon for GB removal Continue Zosyn for potential infection given concern for ascending cholangitis (2) Choledocholithiasis: Status: Acute Assessment and plan: Confirmed on MRCP: two 5 mm distal CBD stones No current signs of cholangitis (afebrile, stable WBC) Monitor LFTs daily - improved overnight significantly Surgery aware and will follow - will take to the OR this afternoon. (3) Cholangitis: Status: Acute Assessment and plan: Likely due to inflammation and ductal obstruction Managed with APAP/NSAIDs; avoid opioids if possible Reassess pain control frequently - no pain meds overnight. (4) Abdominal pain: Status: Acute Assessment and plan: Likely due to inflammation and ductal obstruction Managed with APAP/NSAIDs; avoid opioids if possible Reassess pain control (5) Nausea & vomiting: Status: Acute Assessment and plan: Symptom of pancreatitis - Lipase improved Treat with antiemetics (ondansetron PRN) Maintain NPO,for surgery today (6) Leukocytosis: Status: Acute Assessment and plan: Likely reactive to pancreatitis Monitor CBC WBC 13.06 Hgb 12.7 Blood cultures pending Subjective Subjective Patient reports: no new complaints, feels better, pain is less, no bowel movement and afebrile; denies diarrhea, vomiting or shortness of breath Interval history since last seen: No new complaints over night, slept well and did not require pain medication; patient reports she is feeling hungry. Exam Narrative Exam Narrative: General: Alert, no distress, cross legged in bed, conversant, pleasant. HEENT: Normocephalic, atraumatic, oropharynx moist Neck: Supple, no lymphadenopathy, trachea midline Cardiac: Regular rate and rhythm, no murmurs Lungs: CTA bilaterally, no rales/wheezes Abdomen: Soft, non-distended, + epigastric tenderness, no guarding/rebound Extremities: No edema, full ROM Neuro: A&O x4, non-focal exam Psych: Pleasant, cooperative, euthymic Objective Last Vital Signs Temp 36.4 C L 02/25/25 10:53 Pulse 78 02/25/25 10:53 Resp 18 02/25/25 10:53 BP 132/85 02/25/25 10:53 Pulse Ox 96 02/25/25 10:53 Laboratory Results - last 24 hr 02/24/25 02/24/25 02/25/25 10:39 13:16 06:12 WBC 13.06 H RBC 4.42 Hgb 12.7 Hct 38.9 MCV 88 MCH 28.7 MCHC 32.6 RDW 15.8 H Plt Count 428 H MPV 9.6 Immature Gran % 0.3 Neutrophils % 74.9 Lymphocytes % 17.8 Monocytes % 5.4 Eosinophils % 1.1 Basophils % 0.5 Nucleated RBC % 0.0 Absolute Neutrophils 9.78 H Absolute Lymphocytes 2.32 Absolute Monocytes 0.71 Absolute Eosinophils 0.14 Absolute Basophils 0.07 PT 9.9 INR 1.0 Sodium 140 Potassium 4.3 Chloride 104 Carbon Dioxide 24.7 Anion Gap 11.3 H BUN 12 Creatinine 0.8 Est GFR (CKD-EPI 2020) 94.28 Glucose 93 Calcium 8.8 Magnesium 2.0 Total Bilirubin 0.6 Conjugated Bilirubin 0.7 H AST 88 H ALT 190 H Alkaline Phosphatase 181 H Total Protein 7.2 Albumin 3.5 Lipase > 3000 H Ethyl Alcohol < 3.0 02/25/25 07:29 WBC RBC Hgb Hct MCV MCH MCHC RDW Plt Count MPV Immature Gran % Neutrophils % Lymphocytes % Monocytes % Eosinophils % Basophils % Nucleated RBC % Absolute Neutrophils Absolute Lymphocytes Absolute Monocytes Absolute Eosinophils Absolute Basophils PT INR Sodium Potassium Chloride Carbon Dioxide Anion Gap BUN Creatinine Est GFR (CKD-EPI 2020) Glucose Calcium Magnesium Total Bilirubin Conjugated Bilirubin AST ALT Alkaline Phosphatase Total Protein Albumin Lipase 130 H Ethyl Alcohol Time Spent with Patient Time Spent with Patient: 25-34 minutes Time was spent: preparing to see the patient(eg.review tests), ordering medications,tests, procedures, referring, communicating with other health direct care counselor, indepentently interpreting results, counseling the patient and care coordination
--- NOTE | 2025-02-25 12:54 | PHA.REVIEW2 ---
Pharmacy Admission Review Admission Clinical Review Admission Pharmacy Review: Cholangitis (Acute) Abdominal pain (Acute) Leukocytosis (Acute) Nausea & vomiting (Acute) Choledocholithiasis (Acute) Gallstone pancreatitis (Acute) latex Allergy (Unknown, Unverified 02/24/25 10:13) BREAKS OUT IN WATER BLISTERS venom-honey bee (bee venom (honey bee)) Allergy (Unknown, Unverified 02/24/25 10:13) swelling codeine Adverse Reaction (Unknown, Unverified 02/24/25 10:13) COULD NOT SLEEP FOR 3 DAYS Resuscitation Status Full Code Height 5 ft 6 in Weight 102 kg Comments Comments/Follow Ups: Patient's LFTs improving but still high. Monitor lipase, LFTs Pharmacy Admission Review Renal Dosing Renal Dosing: BUN 12 mg/dL (7-18) 02/25/25 06:12 Creatinine 0.8 mg/dL (0.55-1.02) 02/25/25 06:12 Medications needing adjustments: Reviewed (No renal dose adjustments needed. Patient's Crcl > 100ml/min) Anticoagulation Anticoagulation: Hgb 12.7 g/dL (11.2-15.7) 02/25/25 06:12 Hct 38.9 % (36.0-46.0) 02/25/25 06:12 Plt Count 428 10^3/uL (130-400) H 02/25/25 06:12 INR 1.0 (0.9-1.1) 02/24/25 13:16 Creatinine 0.8 mg/dL (0.55-1.02) 02/25/25 06:12 DVT Prophylaxis: Reviewed (Sequential compression device ordered for prophylaxis) Opiate Usage Evaluate Pain Scale/Pains Meds: Reviewed (Pain level 8 recorded. Patient has an order 2mg hydromorphone PRN injection last received 02/24 160) Relevant Labs Relevant Labs: Sodium 140 mmol/L (136-145) 02/25/25 06:12 Potassium 4.3 mmol/L (3.5-5.1) 02/25/25 06:12 Chloride 104 mmol/L (98-107) 02/25/25 06:12 Magnesium 2.0 mg/dL (1.8-2.4) 02/25/25 06:12 Electrolytes, C-Reactive P, ESR: Reviewed (Electrolytes improved and stable) Cardiac Review Cardiac Review: Blood Pressure 132/85 Blood Pressure 129/72 Blood Pressure 124/76 Troponin I 5 ng/L (<or=51) 02/24/25 10:39 Home Meds Home Med List reviewed: Reviewed (Patient currently NPO due to scheduled GB removal this afternoon) Current Meds Current Medication Order Review: Reviewed Comments Comments/Follow Ups: Patient's LFTs improving but still high. Monitor lipase, LFTs
--- NOTE | 2025-02-25 13:25 | PHA.ACLINAW ---
Renal Dosing Renal Dosing: BUN 12 mg/dL (7-18) 02/25/25 06:12 Creatinine 0.8 mg/dL (0.55-1.02) 02/25/25 06:12 Anticoagulation Anticoagulation: Hgb 12.7 g/dL (11.2-15.7) 02/25/25 06:12 Hct 38.9 % (36.0-46.0) 02/25/25 06:12 Plt Count 428 10^3/uL (130-400) H 02/25/25 06:12 INR 1.0 (0.9-1.1) 02/24/25 13:16 Creatinine 0.8 mg/dL (0.55-1.02) 02/25/25 06:12 Opiate Usage Evaluate Pain Scale/Pains Meds: Reviewed (Patient on 0.5mg Hydromorphone Q4H PRN. Last received 1609) Relevant Labs Relevant Labs: Sodium 140 mmol/L (136-145) 02/25/25 06:12 Potassium 4.3 mmol/L (3.5-5.1) 02/25/25 06:12 Chloride 104 mmol/L (98-107) 02/25/25 06:12 Magnesium 2.0 mg/dL (1.8-2.4) 02/25/25 06:12 DM Control DM Control: Glucose 93 mg/dL (74-106) 02/25/25 06:12 Cardiac Review Cardiac Review: Troponin I 5 ng/L (<or=51) 02/24/25 10:39
--- NOTE | 2025-02-25 13:52 | W.ANESPRE ---
General Info Date of Service Date Performed: 02/25/25 Height: 5 ft 6 in Weight: 102 kg Body Mass Index (BMI): 36.3 Surgical Procedure: Operation Date: 02/25/25 16:25 Proposed Procedure Side Surgeon p Cholecystectomy Laparoscopic Alexis Sanderson MD Meds Allergies and Home Medications Allergies Allergy/AdvReac Type Severity Reaction Status Date / Time latex Allergy Unknown BREAKS OUT Unverified 02/24/25 10:13 IN WATER BLISTERS venom-honey bee (bee venom Allergy Unknown swelling Unverified 02/24/25 10:13 (honey bee)) codeine AdvReac Unknown COULD Unverified 02/24/25 10:13 NOT SLEEP FOR 3 DAYS Home Medication ?Medication ?Instructions ?Recorded epinephrine 0.3 mg/0.3 mL 0.3 mg IM ONCE 03/15/16 injection, auto-injector (EpiPen 2-Rey) [id number]-minerals 18 1 ea PO DAILY 03/15/16 mg-0.4 mg tablet (Women's Daily Multivitamin) acetaminophen 325 mg tablet 650 mg (2 x 325 mg) PO Q4H PRN PRN 03/17/16 (Tylenol) ibuprofen 600 mg tablet 600 mg PO Q6H PRN PRN 03/17/16 lamotrigine 100 mg tablet 150 mg PO DAILY 08/21/18 (Lamictal) lorazepam 1 mg tablet 1 tab PO PRN PRN 08/21/18 Current Visit Medications: Current Medications Generic Name Dose Route Start Last Admin Trade Name Freq PRN Reason Stop Dose Admin Hydromorphone HCl 0.5 mg 02/24/25 15:47 02/24/25 16:09 Hydromorphone 2 Mg/Ml Syr IVP 0.5 mg Q4H PRN PRN Administration Piperacillin Sod/Tazobactam 50 mls @ 12.5 mls/hr 02/24/25 20:00 02/25/25 11:52 Sod 3.375 gm/ Sodium Chloride IVPB 12.5 mls/hr Q8H KEVIN Administration Sodium Chloride 1,000 mls @ 125 mls/hr 02/24/25 19:15 02/25/25 06:51 Saline 1000ml Bag IV 125 mls/hr INFUSION KEVIN Administration Iohexol 100 ml 02/24/25 11:30 02/24/25 11:29 Omnipaque 350 Mg/Ml 100 Ml Btl IJ 03/26/25 23:59 100 ml DIRECTED KEVIN Administration Ketorolac Tromethamine 15 mg 02/24/25 15:47 Ketorolac 15 Mg/Ml Vial IVP 03/01/25 15:46 Q6H PRN PRN Lorazepam 1 mg 02/24/25 12:06 02/24/25 12:10 Lorazepam 20 Mg/10 Ml Vial IVP 1 mg Q2H PRN PRN Administration Polyethylene Glycol 17 gm 02/24/25 15:18 Polyethylene Glycol 3350 17 Gm Packet PO DAILY PRN PRN Constipation Sodium Chloride 50 ml 02/24/25 11:45 02/24/25 11:31 Normal Saline - Diluent 50 Ml Vial IJ 50 ml .FOR DI USE KEVIN Administration PFSH Active Problems Active Problems: Problem Status Onset Code Cholangitis Acute K83.09 Abdominal pain Acute R10.9 Leukocytosis Acute D72.829 Nausea & vomiting Acute R11.2 Choledocholithiasis Acute K80.50 Gallstone pancreatitis Acute K85.10 Medical History Medical History (Updated 02/24/25 @ 16:35 by Bhavna York NP) Pelvic pain in female Onset 09/2014. Mirena IUD removed. Neg GC/CT. Tobacco Smoking/Tobacco Use Status: Current every day Alcohol Alcohol Intake: never Substance Use Substance use: Never Substance use type: does not use Vital Signs and Lab Results Vital Signs Most Recent Vital Signs in EMR: Most Recent Vital Signs Temp Pulse Resp BP Pulse Ox 36.4 C L 78 18 132/85 96 02/25/25 10:53 02/25/25 10:53 02/25/25 10:53 02/25/25 10:53 02/25/25 10:53 Point of Care Results Point of Care Results: POC- Test(urine) Negative 02/24/25 10:52 Lab Results 02/25/25 06:12 02/25/25 06:12 Complete Blood Count: WBC, (4.4-10.8) 13.06 10^3/uL H Today, 06:12 RBC, (3.93-5.22) 4.42 10^6/uL Today, 06:12 Hgb, (11.2-15.7) 12.7 g/dL Today, 06:12 Hct, (36.0-46.0) 38.9 % Today, 06:12 Plt Count, (130-400) 428 10^3/uL H Today, 06:12 VBG Lactate, (<or=2.0) 1.4 mmol/L 02/24/25, 10:39 Complete Metabolic Panel: Sodium, (136-145) 140 mmol/L Today, 06:12 Potassium, (3.5-5.1) 4.3 mmol/L Today, 06:12 Chloride, (98-107) 104 mmol/L Today, 06:12 Carbon Dioxide, (21.0-32.0) 24.7 mmol/L Today, 06:12 BUN, (7-18) 12 mg/dL Today, 06:12 Creatinine, (0.55-1.02) 0.8 mg/dL Today, 06:12 Est GFR (CKD-EPI 2020), (mL/min/1.73m2) 94.28 Today, 06:12 Magnesium, (1.8-2.4) 2.0 mg/dL Today, 06:12 Calcium, (8.5-10.1) 8.8 mg/dL Today, 06:12 Albumin, (3.4-5.0) 3.5 g/dL Today, 06:12 Glucose, (74-106) 93 mg/dL Today, 06:12 Liver Function Panel: ALT, (14-59) 190 U/L H Today, 06:12 AST, (15-37) 88 U/L H Today, 06:12 Coagulation Panel: INR, (0.9-1.1) 1.0 02/24/25, 13:16 PT, (9.1-11.1) 9.9 sec 02/24/25, 13:16 Cardiac Panel: Troponin I, (<or=51) 5 ng/L 02/24/25 Pancreas Panel: Lipase, (<78) 130 U/L H Today, 07:29 Infectious Disease: Hep Bs Antigen, (Negative) Negative 02/24/25, 10:39 Hepatitis C Antibody, (Negative) Negative 02/24/25, 10:39 Toxicology Panel: Ethyl Alcohol, (<10) < 3.0 mg/dL 02/24/25, 10:39 Anesthesia Assessment and Plan Anesthesia History Personal History: No History of General Anesthesia Family History: No Family History of Anesthesia Complications Exercise Tolerance Exercise Tolerance: Metabolic Equivalents>4 Pertinent Negatives Pertinent Negatives: No Symptoms of GERD Cardiac & Pulmonary Exam Cardiac Exam: Normal S1/S2 Heart Sounds Pulmonary Exam: Clear Bilateral Breath Sounds Implantable Cardiac Device Does patient have a Pacemaker or an ICD?: No Airway Exam Known Difficult Airway: No Mallampati Class: 2 Mouth Opening: Normal (> 3cm) Thyromental Distance: Greater than 3 cm Neck Range of Motion: Full ROM Neck Circumference: Normal Teeth Condition: Normal Dentition ASA Classification ASA Score: ASA 2 Emergency Case?: No NPO Status NPO Status: NPO Clears >2 hours, Solids >8 hours Status Status: Negative HCG Anesthesia Plan Resuscitation Status: Full Code Anesthesia Technique: General Anesthesia Airway Planned: Endotracheal Tube Monitors Used: Standard Monitors
--- NOTE | 2025-02-25 14:05 | CHAPLAIN ---
Jing was sitting up in bed when I visited. She said she's not feeling better yet. She was scheduled to go to [facility] for a procedure and now she said the plans have changed and she'll be having her gallbladder taken out here later today. Her boyfriend has been taking time off work for the planned trip to [facility], and she said that is frustrating to them. It appears that her boyfriend is supportive. Jing is hoping to have the surgery soon and go home, or be allowed to go home and return when the surgery is scheduled.
[2025-02-25] MEDS: Ketorolac 15 MG/ML VIAL IVP ×2 (15:02→21:45)
--- NOTE | 2025-02-25 16:43 | W.PM.PROGNOT ---
Date of Service Date of service: 02/25/25 Time of Service: 16:43 Assessment and Plan Assessment and plan (1) Gallstone pancreatitis: Status: Acute Assessment and plan: At least by biochemistries, it seems that Hebert is passed to the stones causing the pancreatitis. I think the improvement in her symptoms also support this. At this point, I do think it is reasonable to proceed with cholecystectomy for definitive treatment, and reduce risk of future episodes of gallstone pancreatitis. Explained the risks and benefits of the procedure to Jing and she has a good understanding of it. Will get her to the operating room this evening for laparoscopic cholecystectomy. Subjective Subjective Interval history since last seen: Jing is feeling much better today. Her pain is mostly resolved. She was able to get some sleep, and has quite a bit of appetite this morning. Exam GI Other: Abdomen is soft, minimally tender with deep palpation in the mid epigastrium. Objective Last Vital Signs Temp 97.9 F 02/25/25 14:48 Pulse 71 02/25/25 14:48 Resp 18 02/25/25 14:48 BP 133/68 02/25/25 14:48 Pulse Ox 95 02/25/25 14:48 Laboratory Results - last 24 hr 02/24/25 02/25/25 02/25/25 10:39 06:12 07:29 WBC 13.06 H RBC 4.42 Hgb 12.7 Hct 38.9 MCV 88 MCH 28.7 MCHC 32.6 RDW 15.8 H Plt Count 428 H MPV 9.6 Immature Gran % 0.3 Neutrophils % 74.9 Lymphocytes % 17.8 Monocytes % 5.4 Eosinophils % 1.1 Basophils % 0.5 Nucleated RBC % 0.0 Absolute Neutrophils 9.78 H Absolute Lymphocytes 2.32 Absolute Monocytes 0.71 Absolute Eosinophils 0.14 Absolute Basophils 0.07 Sodium 140 Potassium 4.3 Chloride 104 Carbon Dioxide 24.7 Anion Gap 11.3 H BUN 12 Creatinine 0.8 Est GFR (CKD-EPI 2020) 94.28 Glucose 93 Calcium 8.8 Magnesium 2.0 Total Bilirubin 0.6 AST 88 H ALT 190 H Alkaline Phosphatase 181 H Total Protein 7.2 Albumin 3.5 Lipase 130 H Hepatitis A IgM Ab Negative Hep Bs Antigen Negative Hep B Core Total Ab Negative Hepatitis C Antibody Negative Time Spent with Patient Time Spent with Patient: 25-34 minutes Time was spent: preparing to see the patient(eg.review tests), indepentently interpreting results, counseling the patient and care coordination
[2025-02-25] MEDS: Lactated Ringers 1,000 ML 50 ML IV (17:46)
[2025-02-25] MEDS: Indocyanine green 25 MG VIAL 5 MG IVP (18:00)
[2025-02-25] MEDS: Bupivacaine 0.25% Pres-Free W/EPI 30 ML VIAL (19:24)
--- NOTE | 2025-02-25 19:24 | GB_PTH ---
PATIENT: Jing Breen LOC: [id number]#:[id number] AGE/SX: 44/F ROOM: RE02/24/[address]: Ed Wadsworth MD : 1980 BED: A DIS: 02/26/2025 SPEC #: [id number] RECD: 02/26/25 13:06 STATUS: MAICOL REQ #: [id number] MASSIMO: 02/25/25 19:[address]: Alexis Sanderson DEPT: Surgical Specimen RECD BY: Ashley Byrd ENTERED: 02/26/25 13:07 SP TYPE: GB OTHR DR: Ed Wadsworth MD Unknown,Unknown Tissues: 1 - GALLBLADDER Procedures: GROSS AND MICRO LEVEL 3 Comments: [id number]
--- NOTE | 2025-02-25 19:33 | ROE_ITS ---
Operative Note Operative Note PRE-OP DIAGNOSIS: Cholelithiasis with gallstone pancreatitis POST-OP DIAGNOSIS: same PROCEDURE: Laparoscopic cholecystectomy SURGEON: Alexis Sanderson COTTON PICKER: Romana Munoz ANESTHESIA TYPE: Local By Surgeon and General LMA/ETT Refer to Anesthesia Record ESTIMATED BLOOD LOSS: 50 PATHOLOGY: other (Gallbladder) COMPLICATIONS: None Patient was transported to: PACU Patient's condition: stable Indications: Jing is a 44-year-old woman who comes to the hospital with abdominal pain. She was found have choledocholithiasis and gallstone pancreatitis. Arrangements were being set for ERCP, when her pain improved, and biliary biochemistries improved dramatically. This seemed consistent with spontaneous passage of the choledocholithiasis. I recommended laparoscopic cholecystectomy, anticipating resolution of the gallstone pancreatitis, with cholecystectomy as definitive treatment. Findings: Chronically inflamed gallbladder with dilated, bile duct Procedure Description: Hebert was brought to the operating room, and assisted onto the OR table. She was padded and supported appropriately. General endotracheal anesthesia was initiated. I prepped and draped the abdomen in usual fashion. Next, I began with a periumbilical incision. Using a 5 mm optical viewing port, establish pneumoperitoneum under direct vision. A 5 mm 30 degree scope was introduced, and the underlying viscera was examined. There was no evidence of any injury from entry. With the assistance of the laparoscope, 5 mm port was placed in the right lateral abdomen, and 1 in the mid epigastrium. The camera was moved to the right side, and the umbilical site was upsized to a 12 mm port. Finally, 1 more port was placed in the right mid abdomen. There was some adhesions of the greater omentum to the dome of the gallbladder which were swept free. I then grasped the gallbladder fundus and elevated cephalad. I began by dissecting the gallbladder infundibulum. With the assistance of indocyanine green visualization, I worked in a lateral to medial fashion. The common bile duct was quite dilated, and as the dissection was carried down around the infundibulum to the cystic neck, great care was taken to avoid any injury to the common bile duct. The cystic duct and artery were skeletonized, and the critical view of safety was obtained. It was obvious at this point that the small clip medical sonographer would not be sufficient to control the cystic duct, which had been dilated from the stones in the common bile duct. Therefore, the 5 mm port in the mid epigastrium was upsized to a 12, and a larger clip medical sonographer was used the duct was doubly clipped and divided. I then used a smaller clip medical sonographer to control the cystic artery. I then used electrocautery to dissect the gallbladder off the gallbladder fossa. I passed the gallbladder into an Endo Catch bag and removed it by way of the umbilical site. I examined the surgical field. It was hemostatic. Everything was irrigated clean. The 12 mm port in the mid epigastrium was removed, and a Sameer Brown wound closure device was used to close his fascia. Similarly, the umbilical port was removed and closed in an identical fashion. The remaining 5 mm ports were removed after pneumoperitoneum was evacuated. The skin and subcutaneous tissues were irrigated, and the skin was closed with subcuticular stitches. Bandages were applied as Jing was awoken from the anesthetic, extubated, and subsequently transferred to recovery area. Date of Procedure: 02/25/25
--- NOTE | 2025-02-25 20:21 | W.ANESPOSTOP ---
Postoperative Evaluation Date, Time and Location Date Performed: 02/25/25 Time Performed: 20:21 Patient Location: PACU Vital Signs Most Recent Imported Vital Signs: Most Recent Vital Signs Temp Pulse Resp BP Pulse Ox 36.5 C 60 16 181/83 H 94 02/25/25 20:09 02/25/25 20:09 02/25/25 20:09 02/25/25 20:09 02/25/25 20:09 Pain Score Most Recent Pain Score: Most Recent Pain Score Pain Level 0 02/25/25 20:09 Assessment Mental Status: Awake (Alert & Oriented to Patient Baseline) Airway and Respiratory Function: Patent airway with normal (patient baseline) respiratory exam Cardiovascular Function: Hemodynamically Stable Hydration Status: Adequately Hydrated Nausea & Vomiting: No Nausea or Vomiting Pain: Pain is tolerable per patient Peripheral Nerve Block: Patient did not receive a nerve block
[2025-02-26] MEDS: HYDROmorphone 2 MG/ML SYR 0.5 MG IVP (00:11)
[2025-02-26 03:35] VITALS: BP 153/90; PULSE 65; RESP 17; TEMP 36; O2SAT 97
[2025-02-26] MEDS: Ketorolac 15 MG/ML VIAL IVP (04:46)
[2025-02-26 07:18] LABS: ALT 123 U/L (14-59); AST 51 U/L (15-37); Albumin 3.4 g/dL (3.4-5.0); Alkaline Phosphatase 160 U/L (46-116); Bilirubin, Direct 0.1 mg/dL (0.0-0.2); Bilirubin, Total 0.3 mg/dL (0.2-1.0); Lipase 32 U/L (<78); Total Protein 7.2 g/dL (6.4-8.2)
[2025-02-26 07:28] VITALS: BP 151/83; PULSE 71; RESP 18; TEMP 36.5; O2SAT 100
--- NOTE | 2025-02-26 09:17 | PGE_ITS ---
<Statement entered by Shasha Mckinnon MD - 02/26/25 16:18> Romana's note reviewed, hospitalist note reviewed. Pt discharged prior to my seeing and examining her. She will be seen in office for follow up. Date of Service Date of service: 02/26/25 Time of Service: 09:17 Assessment and Plan Assessment and plan (1) Gallstone pancreatitis: Status: Acute Assessment and plan: POD # status post laparoscopic cholecystectomy with Dr. Sanderson She is tolerating a regular diet. She describes her pain as well under control and she is eager to be discharged home. She is taking adequate p.o. fluids so will d/c her IV. Awaiting AM labs. Anticipate d/c home later today. Subjective Subjective Interval history since last seen: Arrived with Jing sitting up into the bed. She reports that she is feeling good and ready to be discharged home. She did eat a little bit for breakfast however she states that she was unable to eat the eggs she does not enjoy them. She denies any fevers, chills or night sweats. She describes her abdominal pain is well-controlled at this time. Exam Const General: cooperative, healthy appearing and comfortable Orientation: alert and oriented x3 Resp Effort & Inspection: normal respiratory effort, no audible wheezes and no cough Objective Last Vital Signs Temp 36.5 C 02/26/25 07:28 Pulse 71 02/26/25 07:28 Resp 18 02/26/25 07:28 BP 151/83 H 02/26/25 07:28 Pulse Ox 100 02/26/25 07:28 Laboratory Results - last 24 hr 02/24/25 02/26/25 10:39 06:02 Total Bilirubin 0.3 Conjugated Bilirubin 0.1 AST 51 H ALT 123 H Alkaline Phosphatase 160 H Total Protein 7.2 Albumin 3.4 Lipase 32 Hepatitis A IgM Ab Negative Hep Bs Antigen Negative Hep B Core Total Ab Negative Hepatitis C Antibody Negative Time Spent with Patient Time Spent with Patient: <25 minutes Time was spent: preparing to see the patient(eg.review tests) and counseling the patient
--- NOTE | 2025-02-26 09:26 | PDOC.CMDIS ---
Date of service: 02/26/25 Time of Service: 09:26 LACE Index Scoring Tool Questions: Length of Stay (in days): 2 Was the patient admitted via the E.D.?: Yes E.D. Visits: 2 Answers: Total Score: 7 Risk of Readmission: Low Risk Care Management Discharge Plan Reason for Hospitalization: cholelithiasis with gallstone pancreatitis s/p laparoscopic cholecystectomy on 02/25/25 Discharge Plan: Jing was discharged home earlier today with no new services. She was up walking in the room and had tolerated breakfast. She will follow up with the T-doc on 03/06/25 (and hopefully establish care) and with surgery on 03/12 and continue per her plan of care. Jing transported home with her partner, Kade. Patient/Family Education Needs: Review of discharge instructions, activity, limitations, and discuss Ask me 3. SDOH Health Related Social Needs: Health related social needs food insecurity education Health related social needs details N/A Health related social needs details: N/A
--- NOTE | 2025-02-26 10:38 | DSE_ITS ---
Date of service: 02/26/25 Time of Service: 10:38 DS: Diagnosis Discharge Diagnosis (1) Gallstone pancreatitis: Status: Acute Discharge Plan Disposition Patient Disposition: Home Condition: Good Discharge Details Reason For Visit: Abd Pain Admit Date/Time: 02/24/25 14:06 Admit Provider: Ed Wadsworth Attending Provider: Ed Wadsworth Primary Care Provider: Unknown,Unknown Hospital Course Hospital Course: History of Present Illness: Jing Breen is a 44-year-old female admitted on 02/24/25 with acute epigastric pain and elevated lipase >3000 U/L, consistent with acute gallstone pancreatitis. Initial plan considered ERCP; however, after clinical improvement and decreasing lipase (130 U/L the following day), and in consultation with the GI team at [facility] [place], the decision was made to proceed with laparoscopic cholecystectomy as definitive management to prevent recurrence. Hospital Course: * Clinical status improved over hospitalization. * Lipase levels trended down significantly. * She tolerated oral intake, remained hemodynamically stable, and had improving symptoms. * Underwent laparoscopic cholecystectomy on 02/26/25 without complications. * Postoperatively (POD #1), she tolerated a regular diet and reported good pain control. * IV fluids were discontinued as she maintained adequate oral intake. * Patient was discharged home on the evening of 02/26/25 in stable condition with her boyfriend. Discharge Condition: * Stable * Tolerating regular diet * Pain well-controlled on acetaminophen, declined other pain medication. * Ambulating independently Discharge Diagnosis: Primary: * Acute gallstone pancreatitis (resolved) Secondary: * Status post laparoscopic cholecystectomy Discharge Medications: * Acetaminophen 1000 mg PO q6h PRN pain * (Patient declined additional analgesics) (No narcotics prescribed unless noted otherwise in original medication reconciliation.) Discharge Disposition: Home, accompanied by boyiend Home Meds and New Rx's Prescriptions: Continued epinephrine [EpiPen 2-Rey] 0.3 MG/0.3 ML auto-injector 0.3 mg IM ONCE Patient Comments: I have never used 06/07/16 Women's Daily Multivitamin 1 EACH tablet 1 ea PO DAILY acetaminophen [Tylenol] 325 MG tablet 650 mg PO Q4H PRN PRN0RF lorazepam 1 mg Tablet 1 tab PO PRN PRN lamotrigine [Lamictal] 100 mg Tablet 150 mg PO DAILY Discontinued ibuprofen 600 MG tablet 600 mg PO Q6H PRN PRN0RF Discharge Instructions Instructions: Cholecystectomy (DC) Additional Instructions: Activity * Laparoscopic cholecystectomy: * Resume light activities within 24?48 hours. * Avoid heavy lifting (>10?15 lbs) for 1?2 weeks. Diet * Resume a low-fat, bland diet initially: * Avoid fried, greasy, or spicy foods. * Eat small, frequent meals. * Gradually reintroduce fiber and dairy. * Stay well hydrated. Medications * Take Tylenol as needed for pain * Resume other home medications Wound Care * Keep incisions clean and dry. * You may shower after 24?48 hours * Pat incisions dry?do not scrub. * Avoid soaking in a tub, hot tub, or swimming until cleared. When to Call Your Doctor Seek medical attention if you experience: * Fever >101?F (38.3?C) * Increasing abdominal pain or swelling * Redness, warmth, or pus at the incision site * Jaundice (yellowing of skin or eyes) * Nausea or vomiting that won?t go away * No bowel movement or gas for more than 3 days * Shortness of breath or chest pain Driving * You can usually resume driving after 3?7 days (laparoscopic), or once you can move comfortably and react quickly. Follow-Up * Attend your post-op appointment 03/12/2025 @ 11:[address] [facility]; general surgery in the building across the street from the hospital. * Attend post hospitalization appointment with Dr. Quezada 03/06/2025 @ 11:45 at the [facility]. Stand Alone Forms: Nursing Discharge Form Referrals: Jhonny Quezada MD [ NON-[facility] STAFF PHYSICIAN, Medicine] - 03/06/25 11:45 am Alexis Sanderson MD [ [facility] STAFF PHYSICIAN, Surgery] - 03/12/25 11:45 am Referral Note: 1-2 weeks post op check , with Romana galdamez. Activity:: Activity as Tolerated Equipment/Supplies:: No Equipment Needed Diet:: As Tolerated Discharge Orders Discharge Orders: Discharge Order (Routine); Ordered 02/26/25 Ordered By: Bhavna York Discharge Data Discharge Date/Time-TO BE ENTERED AT DEPARTURE: 02/26/25 11:08 DS: Summary Time Spent with Patient providing and/or coordinating discharge services: Less than 30 minutes Status at Discharge Functional status at discharge: independent ambulation Overall status at discharge: patient is progressing back to baseline Mental Status: mental status grossly normal Speech and Movement: speech and movement normal Mood: congruent mood Affect: normal affect Quality:SDOH Health Related Social Needs: Health related social needs food insecurity education Health related social needs details N/A Health related social needs details: N/A Exam Narrative Exam Narrative: General: Alert, no distress, Sitting in a chair in the room, conversant, pleasant. HEENT: Normocephalic, atraumatic, oropharynx moist Neck: Supple, no lymphadenopathy, trachea midline Cardiac: Regular rate and rhythm, no murmurs Lungs: CTA bilaterally, no rales/wheezes Abdomen: Soft, non-distended, no guarding/rebound Extremities: No edema, full ROM Neuro: A&O x4, non-focal exam Psych: Pleasant, cooperative, euthymic Psych Mental Status: mental status grossly normal Speech and Movement: speech and movement normal Mood: congruent mood Affect: normal affect DS: Data Vitals/I&O Vitals and I&O: Vital Signs Temperature 36.5 C 02/26/25 07:28 Temperature Source Tympanic 02/26/25 07:28 Pulse 71 02/26/25 07:28 Pulse Rhythm Regular 02/24/25 15:19 Pulse Strength Normal 02/24/25 12:21 Respiratory Rate 18 02/26/25 07:28 Respiratory Effort Normal, Non-Labored 02/24/25 15:19 Respiratory Depth Normal 02/24/25 15:19 Respiratory Pattern Normal 02/24/25 15:19 Blood Pressure 151/83 H 02/26/25 07:28 Blood Pressure Mean 105 02/26/25 07:28 Blood Pressure Position Sitting 02/24/25 12:21 Pulse Oximetry 100 02/26/25 07:28 Respiratory End-tidal CO2 28 02/25/25 20:20 Oxygen Delivery Method Room Air 02/26/25 07:28 Oxygen Flow Rate 0 02/26/25 07:28 Pain Level 3 02/26/25 07:28 Intake & Output 02/25/25 02/25/25 02/26/25 11:59 23:59 11:59 Intake Total 1100 / 3887 2787 / 3887 Balance 1100 / 3887 2787 / 3887 Weight 102 kg Intake: IV 1100 / 3887 2787 / 3887 Other: Urine Color Yellow Yellow Urine Appearance Clear Clear Urine Odor Normal None Comment Patient independent patient stated she has voided a couple of times over the last few hours. Emesis Description None Data Completed and Pending Labs on day of discharge: Labs from last 24 hours 02/26/25 02/24/25 06:02 10:39 Total Bilirubin 0.3 Conjugated Bilirubin 0.1 AST 51 H ALT 123 H Alkaline Phosphatase 160 H Total Protein 7.2 Albumin 3.4 Lipase 32 Hepatitis A IgM Ab Negative Hep Bs Antigen Negative Hep B Core Total Ab Negative Hepatitis C Antibody Negative Preliminary micro results at discharge 02/24/25 13:25 Blood Blood Culture - Preliminary NO GROWTH 24 HOURS 02/24/25 13:16 Blood Blood Culture - Preliminary NO GROWTH 24 HOURS PFSH All Active Problems (Updated 02/26/25 @ 18:55 by Bhavna York NP) Choledocholithiasis (Acute) Gallstone pancreatitis (Acute) Medical History (Updated 02/26/25 @ 18:55 by Bhavna York NP) Situational depression (09/22/15) Multigravida in third trimester (01/27/16) Multigravida in second trimester (09/22/15) Encounter for supervision of other normal , first trimester (08/25/15) Cholangitis Cholelithiasis with acute cholangitis without biliary obstruction Family History Mother Alcohol abuse Sister Asthma Other Hypothyroidism Social History Smoking/Tobacco Use Status: Current every day Smoking risk assessment performed?: Yes Alcohol Intake: never Drug use: Never Substance use type: does not use Housing: apartment Do you feel safe at home: Yes Do you feel safe in your relationship?: Yes Time Spent with Patient Time Spent with Patient: 70-84 minutes4 Time was spent: preparing to see the patient(eg.review tests), ordering medications,tests, procedures, referring, communicating with other health managed care coordinator, indepentently interpreting results, counseling the patient and care coordination
[2025-02-26 10:51] VITALS: BP 165/96; PULSE 65; RESP 18; TEMP 37.1; O2SAT 97
[2025-02-26] MEDS: Acetaminophen 500 MG TAB 1000 MG PO (11:14)
== END 2025-02-26 11:08 | disposition home or self-care (01) ==
LOC: ER 13:56 → MS 15:18
PROVIDERS: Surgery; Admitting Provider Family Medicine; Emergency Provider Physician Assistant; Responsible Provider Nurse Practitioner Family; Visit Provider Family Medicine
PROC: 0FT44ZZ Resection of Gallbladder, Percutaneous Endoscopic Approach (ICD-10-PCS; CPT 47562; principal; 2025-02-25 16:15)
DX: K85.10 Biliary acute pancreatitis without necrosis or infection (principal); K80.11 Calculus of gallbladder with chronic cholecystitis with obstruction; K80.71 Calculus of gallbladder and bile duct without cholecystitis with obstruction; R11.2 Nausea with vomiting, unspecified; D72.829 Elevated white blood cell count, unspecified
CPT/HCPCS: 47562; 00123; 36415; 80053; 80076; 81025; 83690; 86704; 86709; 86803; 87040; 87340; 96361; 96365; 96366; 96367; 96375; 96376; 99285; 74177; 74181; 80320; 81003; 81015; 82248; 83605; 83735; 84484; 85025; 85610; 88304; 99222; 99232; 99239; G0378; J0131; J0360; J0690; J1100; J1171; J1805; J1885; J2003; J2060; J2250; J2405; J2543; J2704; J3490